=== PATIENT | female | born 1940 | race Caucasian/White ===

== ENCOUNTER 2016-07-25 22:51 | Inpatient (IN) | payer MEDICARE, MEDICAID ==
[~2016-07-25] VITALS: Ht 160 cm; Wt 119.2 kg
[~2016-07-25 22:51] MED LIST: ALBU8.5H2 IH; AMIO200T PO; AMLO5TAB2 PO; ASPI-628 PO; ATOR40TA69 PO; CALC-766 PO; FERR-83 PO; FLUT12AE8 IH; FURO40TA4 PO; HYDR-4003 PO; INSU100I SQ; INSU100I13 SUBQ; ISOS120T6 PO; LEVO88TA4 PO; LOSA50TA37 PO; MAGN250T37 PO; METO-272 PO; NITR0.4T SL; OMEP-113 PO; WARF5TAB7 PO
[2016-07-25 22:57] VITALS: BP 126/51; PULSE 63; RESP 20; O2SAT 94
[2016-07-25] MEDS ORDERED: Albuterol 2.5 mg/3 mL Inhalation Solution NEB ONE ×2 (23:42→23:50)
[2016-07-25] MEDS ORDERED: Albuterol-Ipratropium 3 mL Inhalation Solution ONE (23:50)
--- NOTE | 2016-07-25 23:52 | ED.REPORT ---
HPI-General Illness Date of Service Jul 25, 2016 ED Provider: Pascual Edwards MD 75 year old female with a history of asthma, atrial fibrillation, CAD, and HTN presents to the ER complaining of a week of shortness of breath, worsening tonight. Associated symptom of productive cough with yellow sputum, with an episode of blood streaked phlegm. Patient denies chest pain, fever, chills, and any bowel or urinary symptoms. Similar symptoms in the past. Nursing Notes Stated Complaint: DIFFICULTY BREATHING Chief Complaint: Respiratory Complaints Nursing Notes Reviewed: Yes Allergies: Coded Allergies: codeine (Verified Allergy, Unknown, 07/25/16) ibuprofen (Verified Allergy, Unknown, 07/25/16) Scheduled Amiodarone (Amiodarone) 200 Mg Tablet 100 MG PO AM Amlodipine (Amlodipine) 5 Mg Tablet 10 MG PO DAILY Aspirin Chew (Aspirin Chew) 81 Mg Chew 81 MG PO DAILY Atorvastatin Calcium (Atorvastatin Calcium) 40 Mg Tablet 80 MG PO DAILY Beclomethasone Dipropionate (Qvar) 8.7 Gm Aer.w.adap 2 PUFF INHALATION BID Calcium Carbonate (Tums) 500 Mg Tab.chew 1,000 MG PO DAILY Ferrous Sulfate (Ferrous Sulfate) 325 Mg Tablet 325 MG PO DAILY Fluticasone Propionate (Flovent HFA 110 mcg) 12 Gm Aer.w.adap 1 PUFF IH BID Furosemide (Furosemide) 40 Mg Tablet 80 MG PO DAILY Insulin Aspart (NovoLOG U-100 Pen) 100 Unit/Ml Insuln.pen 16 SQ AC Insulin Glargine (Lantus U100 Solostar Insulin Pen) 100 Unit/1 Ml Insuln.pen 25 UNIT SUBQ MORNING Insulin Glargine (Lantus U100 Insulin Vial) 100 Unit/Ml Vial 35 UNIT SUBQ HS Isosorbide MN ER (Isosorbide MN ER) 120 Mg Tab.er.24h 120 MG PO AM Levothyroxine (Levothyroxine) 88 Mcg Tablet 75 MCG PO DAILY Losartan Potassium (Losartan Potassium) 50 Mg Tablet 50 MG PO DAILY Magnesium Oxide (Magnesium Oxide) 250 Mg Tablet 250 MG PO DAILY Metoprolol Succinate ER (Metoprolol Succinate ER) 50 Mg Tab.er.24h 200 MG PO DAILY Multivitamin (Once Daily) 1 Each Tablet 1 EACH PO DAILY [place]-3 Fatty Acids/Fish Oil ([place] 3 1,000 mg Softgel) 1 Each Capsule 1 EACH PO DAILY Omeprazole (Omeprazole) 20 Mg Capsule.dr 20 MG PO DAILY Prednisone (PredniSONE) 20 Mg Tablet 20 MG PO DAILY take 2 by mouth daily Triamcinolone Acet (Triamcinolone Acetonide Cream) 1 Applic/0.25 Gm Cr 1 APPLIC EXT BID apply to rash on hands, arms and legs twice a day as needed Warfarin Sodium (Warfarin Sodium) 5 Mg Tablet 2.5 MG PO DIRECTED Mon, Wed, Thu Warfarin Sodium (Coumadin) 5 Mg Tablet 5 MG PO DAILY Take sun, e, , thu Scheduled PRN Albuterol HFA (Proair HFA) 8.5 Gm Hfa.aer.ad 2 PUFFS IH Q4 PRN PRN For Shortness of Breath Hydrocodone-Acetaminophen 5-325 mg (Hydrocodone-Acetaminophen 5-325 mg) 1 Each Tablet 1 EACH PO TID PRN PRN For Pain Nitroglycerin SL (Nitrostat) 0.4 Mg Tab.subl 0.4 MG SL Q5MIN PRN PRN For Chest Pain General Time Seen by MD: 23:52 Chief Complaint Other (Shortness of Breath) Hx Obtained From: Patient Arrived By: Walk-in Sudden in Onset?: No Onset Occurred: 1 week ago Symptom Duration: Since onset Associated with: Reports: Cough, Denies: Abdominal pain, Chest pain, Fever, Nausea, Vomiting Pertinent Negative: Pt denies other symptoms Context Related History: Reports Asthma, Reports Coronary artery disease, Reports Diabetes mellitus Similar Sx Previous: Yes Past Medical History Past Medical History Notes: Echocardiogram January 2015 with normal left ventricular size, increased left ventricular wall thickness, EF 70-75% with a hyperdynamic left ventricle, moderate mitral stenosis Past Medical History Sleep apnea hypertension thyroid issues atrial fibrillation Diabetes, type II Hyperlipidemia Asthma Obstructive sleep apnea Reports: Coronary artery disease Past Surgical History eye surgery Cardiac Cath 07/2010 - LAD free of critical disease, but diagonal branches about 95% ostial disease, circumflex artery had about a 50-60% ostial and proximal disease, and inferior branch of obtuse marginal had about 70-80% proximal disease, and the right coronary about 40-50% mid disease, attempted that time by Dr. Hagan on percutaneous intervention on the high diagonal in the inferior branch of obtuse marginal, but was technically difficult PCI itself was unsuccessful-since that time the patient's been managed medically Reports: , Hysterectomy, Tonsillectomy Smoking History Never Smoker Social History Alcohol Use: Denies alcohol use Other Social History: Ambulatory Status Independent Review of Systems Full Review of Systems Constitutional: Denies: Chills, Fever Respiratory: Reports: Prod cough, bloody, Prod cough, yellow, Shortness of breath Cardiovascular: Denies: Chest pain GI: Denies: Abdominal pain, Diarrhea, Nausea, Vomiting Female: Denies: Dysuria, Incontinence, Urinary frequency, Urinary urgency Skin: Denies Diaphoresis Complete sys rev & neg: except as marked. Physical Exam Vital Signs Vital Signs Date Time Temp Pulse Resp B/P Pulse Ox O2 Delivery O2 Flow Rate FiO2 07/26/16 00:09 63 18 98 Room Air 07/26/16 00:00 62 22 140/58 95 Room Air 07/25/16 22:57 36.4 63 20 126/51 94 Room Air Initial VS: Reviewed Head / Eyes: Atraumatic, Normocephalic, PERRL Neck: Supple, Non-tender, Full range of motion Abdomen / GI: Soft, Non-tender, No guarding, No rebound, No distention Extremities: Vascular intact, Neuro intact, No swelling, No tenderness Skin: Warm, Dry, No cyanosis Neurologic: Alert, Oriented, Nonfocal Psychiatric: Mood/affect normal, Behavior normal, Normal thought content General/Constitutional: Awake, Alert, Well developed, Well nourished Respiratory / Chest: Breath sounds NL, No respiratory distress, No rales, No rhonchi Wheezing / Retractions: Positive: Wheeze insp/exp diffuse Prolonged expiratory phase. Breathing through nebulizer. Cardiovascular: Heart rate NL, Regular rhythm, Heart sounds NL, Cap refill not delayed, Peripheral circulation NL Heart sounds barely audible. Interpretation & Diagnostics Lab Results Interpretation Result Diagram: 07/26/16 0552 07/26/16 0552 Test 07/26/16 00:43 07/26/16 01:00 Hold Liz Top Tube Received (Received) Hold Purple Top Tube Received (Received) Prothrombin Time 27.5sec (8.1-12.5) Prothromb Time International Ratio 2.52ratio Activated Partial Thromboplast Time 33.7sec (22.8-33.0) Hold Blue Top Tube Received (Received) Magnesium Level 1.9mg/dL (1.6-2.6) Pro-B-Type Natriuretic Peptide 841.7pg/mL (0-738) Procalcitonin 0.06ng/mL (0.00-0.08) Hold Red Top Tube Received (Received) Hold [place] Top Tube Received (Received) ECG Interpretation ECG Interpretation: Sinus rhythm, rate 61 Probable left atrial enlargement Borderline ST elevation, anterior leads Time: 23:48 Interpreted by: ED physician X-Ray Chest Interpretation Chest Xray Interpretation: No cardiomegaly, no CHF. View: AP & lat Interpretation / Wet Read by: Wet read ED physician Re-Eval/Medical Decision Med Decision/Clinical Course 75-year-old chronic A. fib COPD presents with several days of worsening cough and wheeze. She is grossly wheezy and in moderate respiratory distress initially. She has responded grudgingly took nebs here. X-ray does not disclose CHF. She has received steroids, multiple rounds of nebulizers, and is admitted now in improved condition to the medicine service. Problems #1 exacerbation COPD #2 CHF by history #3 chronic A. fib on Coumadin #4 diabetes, type II on insulin #5 hyperlipidemia #6 history of hypertension #7 obstructive sleep apnea Source of Hx: Old records Time of Eval: 01:49 Re-Evaluation/Progress Note: Discussed lab and imaging results and need for admission. Patient is amenable to the plan. Consultation : Referral / Consult Name: Gaby Benavidez DO Consulted With: Hospitalist Call Returned at: 02:35 Nnps: Agrees with eval, Agrees with plan, Accepts admit Counseled Regarding: Diagnosis, Lab results, Need for admission Discharge & Departure Primary Impression: COPD (chronic obstructive pulmonary disease) Additional Impressions: Diabetes Chronic atrial fibrillation Disposition: ADMITTED TO HOSPITAL Discharge Condition All VS Reviewed: Yes Condition: Stable Referrals: Elena Jewell MD (PCP) Scribe Attestation Portions of this note were transcribed by Oz Burt. I, Dr. Edwards, personally performed the history, physical exam and medical decision-making; I reviewed and confirmed the accuracy of the information in the transcribed note. Signed by: Pedro John. 07/26/2016 - 02:36 copies to: Elena Jewell MD, Christopher W MD Jul 25, 2016 23:52 OZ BURT Jul 25, 2016 23:58 Total Protein 7.4g/dL (6.4-8.4) Albumin 3.6g/dL (3.4-5.0) Hold Liz Top Tube Received (Received) Hold Purple Top Tube Received (Received) Hold Blue Top Tube Received (Received) Hold Red Top Tube Received (Received) Hold [place] Top Tube Received (Received) ECG Interpretation ECG Interpretation: Sinus rhythm, rate 61 Probable left atrial enlargement Borderline ST elevation, anterior leads Time: 23:48 Interpreted by: ED physician X-Ray Chest Interpretation Chest Xray Interpretation: No cardiomegaly, no CHF. View: AP & lat Interpretation / Wet Read by: Wet read ED physician Re-Eval/Medical Decision Source of Hx: Old records Time of Eval: 01:49 Re-Evaluation/Progress Note: Discussed lab and imaging results and need for admission. Patient is amenable to the plan. Consultation : Referral / Consult Name: Gaby Benavidez Consulted With: Hospitalist Call Returned at: 02:35 Nnps: Agrees with eval, Agrees with plan, Accepts admit Counseled Regarding: Diagnosis, Lab results, Need for admission Discharge & Departure Primary Impression: COPD (chronic obstructive pulmonary disease) Disposition: ADMITTED TO HOSPITAL Discharge Condition All VS Reviewed: Yes Condition: Stable Referrals: Elena Jewell MD (PCP) Scribe Attestation Portions of this note were transcribed by Oz Burt. I, Dr. Edwards, personally performed the history, physical exam and medical decision-making; I reviewed and confirmed the accuracy of the information in the transcribed note. Signed by: Pedro John. 07/26/2016 - 02:36 copies to: Elena Jewell MD, Christopher W MD Jul 25, 2016 23:52 OZ BURT Jul 25, 2016 23:58
[2016-07-26] VITALS (18 sets, daily range): BP systolic 139–171; BP diastolic 46–76; PULSE 62–85; RESP 18–24; O2SAT 94–98
[2016-07-26] MEDS ORDERED: Dexamethasone 10 mg/mL Inj IVPUSH ONE (00:40)
[2016-07-26 00:57] LABS: BASOPHILS % (AUTO) 0.2 % (0-3); EOSINOPHILS % (AUTO) 0.4 % (0-5); MONOCYTES % (AUTO) 3.3 % (4-12); Mean Corpuscular Hemoglobin 27.1 pg (27.0-35.0); Mean Corpuscular Volume 86.7 fL (81-100); NEUTROPHILS % (AUTO) 88.6 % (40-74); Platelet Count 235 bil/L (150-400)
[2016-07-26 01:47] LABS: TROPONIN T 0.01 ug/L (0.0-0.011)
[2016-07-26] MEDS ORDERED: Albuterol 2.5 mg/3 mL Inhalation Solution NEB ONE ×2 (01:50)
[2016-07-26 02:58] LABS: TROPONIN T 0.01 ug/L (0.0-0.011)
[2016-07-26] MEDS ORDERED: Ondansetron 2 mg/mL 2 mL Inj IVPUSH PRN (03:00)
[2016-07-26] MEDS ORDERED: Alum-Mag Hydrox-Simeth 30 mL Suspension PO PRN (03:00)
[2016-07-26] MEDS ORDERED: Polyethylene Glycol (PEG) 17 Gm Powder PO PRN (03:00)
[2016-07-26] MEDS: 0.9% Sodium Chloride 1,000 ML IV SCH ×2 (03:30→11:48)
[2016-07-26] MEDS ORDERED: Albuterol-Ipratropium 3 mL Inhalation Solution ONE (03:40)
[2016-07-26] MEDS ORDERED: BUDESONIDE 0.25 MG/2 ML ONE (03:40)
--- NOTE | 2016-07-26 03:44 | PCM.HPMED ---
Subjective Date of Service Jul 26, 2016 Primary Provider: Admitting Physician: Gaby Benavidez DO Primary Care Physician: Elena Jewell MD Attending Physician: Gaby Benavidez DO Admit Status: From the Emergency Department Chief Complaint: Shortness of breath History of Present Illness: Patient is a 75 y.o. 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 She presented to ED with two week history of shortness of breath with productive cough, sputum started as green-brown color now white, one episode of blood streaked sputum but no episode since, increasing use of albuterol inhaler up to 5 times per day. She noted that her symptoms acutely worsened a few hours prior to admission. Patient stated she was sitting down washing dishes and bending over when she became so short of breath she was unable to catch her breath. Patient noted that she felt very dizzy but did not pass out, she told her to help her out to the care and go to the Emergency department. Patient did not notice any change in symptoms during time of day, stating that symptoms are constant and worsening. She noted associated symptoms of orthopnea, PND, exertional dyspnea, chills, night sweats x1, increased swelling in her legs ( patient noted she has chronic LLE edema and this is one of "her bad days"), decreased appetite. Patient denies syncope, weight loss, fever, change in vision , dysuria, constipation, diarrhea. Patient has ever been hospitalized for respiratory issues in the past. In the ED patient was given 5 treatment of duo neb, 10 mg IV Dexamethasone, patient reported temporary relief, but eventual return of symptoms. Per out patient record patient seen by PCP 07/21/16 for breathing difficulty, report indicated that her was recently diagnosed with pneumonia, patient treated for asthma exacerbation 50 mg Prednisone for 5 days with CXR ordered and showed bilateral opacities in upper lobes of lungs, PCP called in script for Doxycycline 100 mg BID 07/23/16. Review of Systems: A comprehensive review of systems was conducted with the patient and found to be negative except as above in the History of Present Illness. Allergies Coded Allergies: codeine (Verified Allergy, Unknown, 07/25/16) ibuprofen (Verified Allergy, Unknown, 3/31/17) Home Medications Amiodarone (Amiodarone) 200 Mg Tablet 200 MG PO AM Amlodipine (Amlodipine) 5 Mg Tablet 5 MG PO DAILY Aspirin (Aspir 81) 81 Mg Tablet.dr 81 MG PO DAILY Atorvastatin Calcium (Atorvastatin Calcium) 40 Mg Tablet 80 MG PO DAILY Calcium Carbonate (Calcium) 500 Mg Tab.chew 1,000 MG PO DAILY Ferrous Sulfate (Ferrous Sulfate) 325 Mg Tablet 325 MG PO DAILY Fluticasone Propionate (Flovent HFA 110 mcg) 12 Gm Aer.w.adap 1 PUFF IH BID Furosemide (Furosemide) 40 Mg Tablet 40 MG PO DAILY Insulin Aspart (NovoLOG U-100 Pen) 100 Unit/Ml Insuln.pen 10 SQ AC Insulin Glargine (Lantus U100 Solostar Insulin Pen) 100 Unit/1 Ml Insuln.pen 20- 25 UNIT SUBQ BID Isosorbide MN ER (Isosorbide MN ER) 120 Mg Tab.er.24h 120 MG PO AM Levothyroxine (Levothyroxine) 88 Mcg Tablet 88 MCG PO DAILY Losartan Potassium (Losartan Potassium) 50 Mg Tablet 50 MG PO DAILY Magnesium Oxide (Magnesium Oxide) 250 Mg Tablet 250 MG PO DAILY Metoprolol Succinate ER (Metoprolol Succinate ER) 50 Mg Tab.er.24h 200 MG PO DAILY Omeprazole Magnesium (Omeprazole) 20 Mg Capsule.dr 20 MG PO DAILY Warfarin Sodium (Warfarin Sodium) 5 Mg Tablet 3 MG PO Mo Thu Sat Sun Albuterol HFA (Proair HFA) 8.5 Gm Hfa.aer.ad 2 PUFFS IH Q4 PRN PRN For Shortness of Breath Hydrocodone-Acetaminophen 5-325 mg (Hydrocodone-Acetaminophen 5-325 mg) 1 Each Tablet 1 EACH PO Q4 PRN PRN For Pain Nitroglycerin SL (Nitrostat) 0.4 Mg Tab.subl 0.4 MG SL Q5MIN PRN PRN For Chest Pain PMH Sleep apnea hypertension thyroid issues atrial fibrillation Diabetes, type II Hyperlipidemia Asthma Obstructive sleep apnea Coronary artery disease Uterine fibroids- Patient reports they were pre-malignant Surgical History eye surgery Cardiac Cath 07/2010 - LAD free of critical disease, but diagonal branches about 95% ostial disease, circumflex artery had about a 50-60% ostial and proximal disease, and inferior branch of obtuse marginal had about 70-80% proximal disease, and the right coronary about 40-50% mid disease, attempted that time by Dr. Hagan on percutaneous intervention on the high diagonal in the inferior branch of obtuse marginal, but was technically difficult PCI itself was unsuccessful-since that time the patient's been managed medically Hysterectomy Tonsillectomy Family History Father: [place], [place], prostate cancer Mother: [place], DM Sister: Uterine cancer Social History Hx Alcohol Use: No Hx Substance Use: No Hx Tobacco Use: No Smoking Status: Never Smoker Exam Vital Signs Vital Sign - Last Date Time Temp Pulse Resp B/P Pulse Ox O2 Delivery O2 Flow Rate FiO2 07/26/16 03:04 36.4 68 22 141/48 Room Air 07/26/16 00:09 98 Intake and Output 07/25/16 07/25/16 07/26/16 Cumulative From/Thru 15:00 23:00 07:00 07/25/16 22:57 - 07/26/16 03:02 Output Total 400 ml 400 ml Balance -400 ml -400 ml Output Urine Total 400 ml 400 ml Exam General: Moderate respiratory distress, conversationally dyspneic, well- developed, well-nourished, appropriately interactive, morbidly obese HEENT: Normocephalic, atraumatic. External ears without defect. Pupils equal, round, and reactive to light and accommodation. Anicteric sclerae, moist conjunctivae, and no lid lag. Oropharynx free of erythema and cobble stoning with moist mucosa. Neck: Supple with full range of motion. No jugular venous distension. No bruits. No lymphadenopathy or thyromegaly. Cardiovascular: Regular rate and rhythm, Heart sounds difficult to appreciate over wheezing Pulmonary: Wide A-P diameter, Prolonged expiratory phase, Diffuse inspiratory and expiratory wheezing audible without stethoscope, course breath sound bilaterally, nasal fairing present, use of accessory muscles difficult to appreciate, no crackles heard at bases, no chest wall tenderness, productive cough present, white sputum. Abdomen: Bowel tones present. Soft, nontender, nondistended. No hepatosplenomegaly or masses appreciated. Extremities: Pitting edema to knee noted bilaterally on exam. No clubbing, cyanosis,or lymphadenopathy appreciated. Skin: Chronic venous status changes noted bilaterally, Normal temperature, poor turgor, and texture;, ulcers, or subcutaneous nodules appreciated. Neurological: Cranial nerves grossly intact. Normal muscle strength, tone, and bulk. Reflexes, coordination, and sensory function within normal limits. No known gait impairment. Psychiatric: Normal mood and affect. Alert and oriented to person, place, and time. Lymphatic: no lymphadenopathy noted on exam Lab and Diagnostics Result Diagram: 07/25/16 0043 07/25/16 0043 X-Rays, CTs and MRIs X-Ray Chest Xray Interpretation: No cardiomegaly, no CHF. View: AP & lat Interpretation / Wet Read by: Wet read ED physician There are no acute signs of CHF, no cephalization of flow noted, no pleural effusions There does appear to be mild cardiomegaly Upper lobe opacities seen on imaging 07/21/30 seem to be resolving, however this can not be excluded until a formal read is done CXR 07/21/16 IMPRESSION: Upper lobe airspace opacities likely related to aspiration versus pneumonia. Continued radiographic surveillance to resolution is recommended. Dictated by: Maxx Contreras RRA Interpreted: Katie Ambriz MD on 07/21/2016 at 16:29 Transcribed by: RENETTA on 07/21/2016 at 16:30 Approved by: Katie Ambriz M.D. on 07/22/2016 at 10:45 12-lead ECG ECG ECG Interpretation: Sinus rhythm, rate 61 Probable left atrial enlargement Borderline ST elevation, anterior leads Time: 23:48 Interpreted by: ED physician Assessment & Plan Patient is a 75 y.o. 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 Admitted for treatment of COPD exacerbation. 1. COPD exacerbation, acute - Likely undiagnosed acute exacerbation of COPD vs CHF vs resolving pneumonia vs co-infection respiratory virus - Patient has history of asthma and GEORGE, never formally diagnoses with COPD CXR consistent with signs of COPD, - At time of admission patient is sating in 90's in RA, with conversational and exertional dyspnea, with prominent rhales and insp/exp wheezing, afebrile, moderate improvement with DUO neb, no elv WCT, no elv procal, troponin negative x 2, - Start Zosyn IV to cover for aspiration pneumonia and atypical microbes, close monitoring of INR needed as this can increase anticoagulation effect if warfarin , Last INR 2.0 07/23/16 - Continue Duoneb Q4 scheduled and Duoneb Q2 PRN - Start Budesonide neb BID - Start Solumedrol IV 125 mg Q6 for 3 doses, if improved condition consider taper to prednisone 40 mg PO QD for five days. - Guaifenesin PO BID - Sputum culture ordered, pending - Viral PCR ordered, pending - incentive spirometer ordered - Acapella ordered - ECHO and repeat trop ordered to assess heart function and ischemia - PT ordered to mobilize at patient tolerates to help mobilize secretions - Recommend PFT testing as outpatient 2. Aspiration pneumonia, failing outpatient treatment - Patient seen by PCP 07/21/16 started on prednisone 50 mg for 5 days, and CXR showed upper lobe opacities in lungs suspicious for aspiration pneumonia, patient started on doxycycline 100 mg PO BID 07/23/16, repeat CXR today shows improvement of opacities however clinically patient appears worse. - Start Zosyn IV to cover for aspiration pneumonia and atypical microbes, close monitoring of INR needed as this can increase anticoagulation effect if warfarin, Last INR 2.0 07/23/16 - Continue Doxycycline 100 mg IV - Repeat INR QD - Repeat CXR QD - Procalcitonin 0.06, WCT normal, LA negative, however these results are somewhat confounded being that patient has already been on antibiotic therapy. - Repeat CBC, BMP in AM - Keep Patient NPO until Swallow eval AM 3.LANIE - Baseline Cr. per outpatient records 1.2-1.4 last BMP on record 03/2016 1.4 - Patient has DMII, likley underlying cause of kidney disease however this will need to be confirmed with outpatient labs. - Continue conservative fluid hydration NS @ 80 mls/hr - Hold nephrotoxic medications - Continue to monitor I/O status - UA ordered, pending - Monitor BMP QD 3. Venous status, chronic - Patient noted her left are chronically swollen and wax/walter in swelling, there is some erythema surrounding legs with dry flaking skin, at this time I do not suspect an acute cellulitis - Continue home lasix at home dose - Monitor I/O - Start Nystatin cream BID PRN - Continue home lasix, consider additional IV lasix if swelling does not improve once renal function normalizes Chronic conditions Obstructive sleep apnea -continue BIPAP at night hypertension - Continue home medicaiton - Repeat BMP in AM Hypothyroidism -Continue home levothyroxine atrial fibrillation - Continue home medications - Continue anticoagulation Diabetes, type II - Home Lantus: 30 units AM, 25 units PM - Hold diet until swallow eval completed Diet: diabetic diet constant carb 45 g carb, low potassium - Start Lantus Am 25 units and PM 20 units - Start medium correctional scale - Last A1C 8.1 04/2016 Hyperlipidemia - Continue Statin Asthma - Manage as above #1 Coronary artery disease - Continue home medications -Cardiac Cath 07/2010 - LAD free of critical disease, but diagonal branches about 95% ostial disease, circumflex artery had about a 50-60% ostial and proximal disease, and inferior branch of obtuse marginal had about 70-80% proximal disease, and the right coronary about 40-50% mid disease, difficult PCI itself was unsuccessful-since that time the patient's been managed medically - If troponin trend up consider cardiology consult Chronic back pain - Continue hydrocodone home dose 5-325 mg PO PRN Q6 CODE STATUS FULL CODE GI prophylaxis: Famotidine DVT: Warfarin Patient is admitted under inpatient status with expected length of stay greater than 2 midnights due to severity of presenting symptoms, risk of adverse event, and complexity of treatment plan. Pain Evaluation: Adequate Pain Control GI Prophylaxis: H2 chanel VTE Prophylaxis: Theraputic Anticoag with Warfarin Resuscitation Status: CPR: Attempt Resuscitation Attending Statement The patient was seen and examined together with house staff on 07/26/2016 and I agree with the history, exam and plan as outlined in the note above. JUAN MULLER DO Jul 26, 2016 03:43 Gaby Benavidez DO Jul 29, 2016 06:46
[2016-07-26] MEDS ORDERED: Glucose 40% Oral Gel 15 Gm Tube PO PRN (04:10)
[2016-07-26] MEDS ORDERED: Piperacillin-Tazo 3.375 Gm Inj 3.375 GM in Dextrose 5% Minibag Plus 50 ML IV ONE (05:00)
[2016-07-26 05:09] LABS: INR 2.52 ratio
--- NOTE | 2016-07-26 05:33 | NUR ---
Admit Admitted to 3025 from ED via wheel chair. Able to ambulate short distance on arrival. RA with significant wheezing throughout. Reports VARGAS but states breathing has improved since arrival to hospital. Productive cough reported but no significant sputum production noted on admit. Tele SR w/o c/o CP or discomfort. Denies issues with PO intake including n/v. Reports occasional incontinence of bowels and urinary dribbling with last BM on 07/24. Baseline generalized weakness with use of walker at home for ambulation. Yeast in abdominal folds and venous ulcers to BLE with clear drainage. BLE edema R>L which patient states is at baseline. Personal belongings at bedside per patient request. Oriented to call light use with return demonstration.
[2016-07-26 06:06] LABS: BASOPHILS % (AUTO) 0.2 % (0-3); EOSINOPHILS % (AUTO) 0 % (0-5); MONOCYTES % (AUTO) 1.1 % (4-12); Mean Corpuscular Hemoglobin 27.2 pg (27.0-35.0); Mean Corpuscular Volume 86.7 fL (81-100); NEUTROPHILS % (AUTO) 94.2 % (40-74); Platelet Count 225 bil/L (150-400)
[2016-07-26] MEDS ORDERED: Albuterol-Ipratropium 3 mL Inhalation Solution NEB PRN (06:15)
[2016-07-26] MEDS ORDERED: MethylprednisoLONE Sodium Succinate 62.5 mg/mL 2 mL Inj IVPUSH SCH ×2 (06:20→15:00)
--- NOTE | 2016-07-26 06:30 | DRSVH ---
PROCEDURE: X-RAY CHEST, TWO VIEWS ([id number]) INDICATIONS: 75-year-old female with shortness of breath., 2-3 weeks of cough. TECHNIQUE: 2 views of the chest were acquired. COMPARISON: [facility], CR, XR CHEST 2VW, 07/21/2016, 16:06. [facility], CR , XR CHEST 1VW (PORTABLE), 12/01/2015, 10:47. [facility], CR, XR CHEST 1VW (PORTABLE), , 11:29. FINDINGS: Surgical changes and devices: None. Lungs and pleura: No pleural effusions or pneumothorax. Lungs are clear. Mediastinum: Mediastinal contours are normal. Heart size is normal. There is aortic atherosclerosi s. Bones and chest wall: No suspicious bony abnormalities. Soft tissues appear unremarkable. IMPRESSION: No acute cardiopulmonary disease. Dictated by: Venkatesh Wallace M.D. on 07/26/2016 at 6:28 Approved by: Venkatesh Wallace M.D. on 07/26/2016 at 6:29
[2016-07-26] MEDS ORDERED: CALC500T9 PO (06:37)
[2016-07-26] MEDS ORDERED: OMEP20CA11 PO (06:37)
[2016-07-26] MEDS ORDERED: ASPI81TA3 PO (06:37)
[2016-07-26 06:43] LABS: TROPONIN T 0.01 ug/L (0.0-0.011)
[2016-07-26] MEDS ORDERED: OMEG1CAP56 PO (07:11)
[2016-07-26] MEDS ORDERED: INSU100V7 SUBQ (07:11)
[2016-07-26] MEDS ORDERED: PRE20 PO (07:11)
[2016-07-26] MEDS ORDERED: BECL8.7A6 INHALATION (07:11)
[2016-07-26] MEDS ORDERED: WARF5TAB PO (07:11)
[2016-07-26] MEDS ORDERED: MULT-666 PO (07:11)
[2016-07-26] MEDS ORDERED: KEN25CR EXT (07:11)
[2016-07-26] MEDS: Insulin LISPRO 300 Unit/3 mL Inj SUBQ SCH ×4 (08:00→22:00)
[2016-07-26] MEDS: Albuterol 2.5 mg/3 mL Inhalation Solution NEB PRN ×3 (08:15→16:29)
[2016-07-26] MEDS ORDERED: predniSONE 20 mg Tablet PO SCH (08:30)
[2016-07-26] MEDS: Budesonide 0.5 mg/2 mL Inhalation Solution NEB SCH ×2 (08:30→19:30)
[2016-07-26] MEDS: Albuterol-Ipratropium 3 mL Inhalation Solution NEB SCH ×3 (08:30→19:30)
[2016-07-26] MEDS ORDERED: Albuterol-Ipratropium 3 mL Inhalation Solution NEB SCH ×2 (08:30)
[2016-07-26] MEDS ORDERED: Heparin 5,000 Unit/mL Inj SUBQ SCH (08:30)
[2016-07-26] MEDS: Famotidine Inj 20 MG in IV Premix 1 EACH IV SCH (09:02)
[2016-07-26] MEDS: guaiFENesin 600 mg ER12 Tablet PO SCH ×2 (09:02→21:38)
[2016-07-26] MEDS: Calcium Carbonate (Oyster Shell) 500 mg Tablet PO SCH (09:04)
[2016-07-26] MEDS: Insulin GLARgine 100 Unit/mL Syringe SUBQ SCH ×2 (09:05→22:03)
[2016-07-26 09:10] LABS: APPEARANCE,URINE CLEAR (CLEAR,HAZY); COLOR,URINE STRAW (YELLOW); OCCULT BLOOD,URINE NEGATIVE (NEGATIVE); PH,URINE 5.5 (5.0-8.0); UROBILINOGEN,URINE NORMAL (NORMAL)
[2016-07-26] MEDS ORDERED: INSU100I13 SUBQ ×2 (09:49→09:50)
[2016-07-26] MEDS ORDERED: qvar (10:12)
--- NOTE | 2016-07-26 10:36 | PCM.PHAPRO ---
Progress Warfarin Management by Pharmacy: -Indication: afib -Home Dose: warfarin 2.5mg on MoWeFr and 5mg all other days -Inr Goal: 2-3 -Coag Trends: inr on admit overnight is 2.52 -H/H= 11.2/35.7 Plt: 225 -Plan: will order warfarin 4mg this evening and monitor. serial inr's have been ordered Shruthi Okeefe [facility] Jul 26, 2016 10:35
--- NOTE | 2016-07-26 10:49 | NUR ---
Evaluation completed. Please go to "Notes" then click on "Assessments and Notes" (bottom left corner of screen). Then select appropriate discipline tab on top of screen.
[2016-07-26] MEDS ORDERED: HYDROcodone-APAP 5-325 mg Tablet PO PRN (11:15)
[2016-07-26] MEDS: Isosorbide Mononitrate 60 mg ER24 Tablet PO SCH (11:21)
[2016-07-26] MEDS: MeTOProlol XL 50 mg ER24 Tablet PO SCH (11:22)
[2016-07-26] MEDS: Doxycycline Inj 100 MG in Dextrose 5% Minibag Plus 100 ML IV SCH (11:46)
--- NOTE | 2016-07-26 12:30 | NUR ---
Evaluation completed. Please go to "Notes" then click on "Assessments and Notes" (bottom left corner of screen). Then select appropriate discipline tab on top of screen.
--- NOTE | 2016-07-26 14:39 | NUR ---
Social Work: Initial Assessment Data: Pt is a 75 y/o female admitted for COPD exacerbation. Pt's PCP is Dr Jewell, pt's insurance is Medicare with [facility] supp. EMR reviewed. Readmit score not listed. MANAGER SIMULATION met with pt at bedside, role explained. Pt sates she lives in [place] with her in a single story home where she uses a walker. Pt states she drives, has hx with [facility], has hx at [facility], has no LTC or VA benefits, and is not a caregiver. Pt states she has and AD/DPOA, MANAGER SIMULATION requested a copy for hospital. MANAGER SIMULATION will continue to follow for possible d/c planning needs. F2F in MANAGER SIMULATION folder for possible HH need. MANAGER SIMULATION contact info and plan written on board in room. MANAGER SIMULATION will continue to follow. Assessment: Pt who is independent at baseline. Plan: Pt will d/c home via POV with spouse when medically stable, MANAGER SIMULATION to R/O possible HH need. MANAGER SIMULATION will continue to follow. ROULA Mcdonald Addendum: 07/26/16 at 1442 by JORJE MTZ Amended: Links added.
[2016-07-26] MEDS: MethylprednisoLONE Sodium Succinate 40 mg/mL Inj IVPUSH SCH ×2 (16:22→21:38)
[2016-07-26] MEDS ORDERED: Insulin LISPRO 300 Unit/3 mL Inj SUBQ ONE (18:00)
[2016-07-26] MEDS ORDERED: Furosemide 10 mg/mL 2 mL Inj IVPUSH ONE (18:05)
[2016-07-26] MEDS: Piper-Tazo 3.375 Gm/50 mL D5W Minibag Plus - Q8H over 4 hrs IV SCH ×2 (18:26)
--- NOTE | 2016-07-26 19:17 | NUR ---
Respiratory/Hyperglycemia Pt wheezy this morning on auscultation throughout all lung mcleod. Alert and oriented. Cont. pulse oximeter applied. brought her personal CPAP. Scheduled nebs have improved pt wheezing and breathing. Slight VARGAS with activity. She is able to walk to bathroom with FWW with min. VARGAS. Pt BG this afternoon elevated to upwards of 600. Lab called to report the critical value. Berto made aware. AC BG scale changed to high dose algorithm. Admin 12 units Lispro at about 1630. Re-checked BG at about 1800 and BG still elevated in the 500 range. Berto made aware and order for one time dose of 24 units Lispro. Will pass on to night clerk auditor to monitor BG levels this evening.
--- NOTE | 2016-07-26 19:23 | PCM.PNMED ---
Subjective Date of Service Jul 26, 2016 Subjective 75-year-old female with multiple comorbid conditions including asthma, and tested positive for human metapneumovirus. This is not a billable encounter, agree with Dr. Osiel Vogel's assessment and plan. Upon examination this morning patient stated that she feels better than she did. She is no longer gasping for air as like she was. She still had audible wheezes when in close proximity. Nebulizer treatment regimen was changed to DuoNeb every 6 hours and albuterol every 2 hours when necessary for shortness of breath. Her Solu-Medrol dose was decreased from 125 IV every 6 to 40 IV every 6 hours. Patient was having gentle fluid resuscitation while being nothing by mouth due to her respiratory status of about 80 mL per hour. The edema in her legs continued to worsen over the days of the fluids were stopped. Patient does not have diagnosed CHF. Echo was ordered however not completed today. I spoke with the who is concerned about leg swelling. Patient's creatinine stayed stable at 1.54, a dose of 20mg IV Lasix was given. Home dose of Lasix is 40 mg by mouth daily. Patient's blood sugar increase in the afternoon into the 600s presumably due to steroid use. Additional short acting insulin was added. Patient normally takes 25 units of Lantus at night. Due to her increased blood sugar and treatment with steroids her evening dose was increased to 30 units. I have not yet made adjustments to her morning dose as her sugars overnight will dictate what may be helpful for her then. Patient's glucose status was discussed with night resident who is following. ] Exam Vital Signs Vital Sign - Last Date Time Temp Pulse Resp B/P Pulse Ox O2 Delivery O2 Flow Rate FiO2 07/26/16 18:25 36.3 81 22 139/63 96 Room Air Intake and Output 07/25/16 07/25/16 07/26/16 Cumulative From/Thru 15:00 23:00 07:00 07/25/16 22:57 - 07/26/16 05:45 Intake Total 0 ml 0 ml Output Total 400 ml 400 ml Balance -400 ml -400 ml Intake Oral 0 ml 0 ml Output Urine Total 400 ml 400 ml # Voids 0 0 # Bowel Movements 0 0 Lab and Diagnostics Result Diagram: 07/26/16 0552 07/26/16 1520 X-Rays, CTs and MRIs X-Ray Chest Xray Interpretation: No cardiomegaly, no CHF. View: AP & lat Interpretation / Wet Read by: Wet read ED physician There are no acute signs of CHF, no cephalization of flow noted, no pleural effusions There does appear to be mild cardiomegaly Upper lobe opacities seen on imaging 07/21/30 seem to be resolving, however this can not be excluded until a formal read is done CXR 07/21/16 IMPRESSION: Upper lobe airspace opacities likely related to aspiration versus pneumonia. Continued radiographic surveillance to resolution is recommended. Dictated by: Maxx Contreras RRA Interpreted: Katie Ambriz MD on 07/21/2016 at 16:29 Transcribed by: RENETTA on 07/21/2016 at 16:30 Approved by: Katie Ambriz M.D. on 07/22/2016 at 10:45 12-lead ECG ECG ECG Interpretation: Sinus rhythm, rate 61 Probable left atrial enlargement Borderline ST elevation, anterior leads Time: 23:48 Interpreted by: ED physician Assessment & Plan Patient is a 75 y.o. 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 Admitted for treatment of COPD exacerbation. 1. COPD and /or asthma exacerbation due to human metapneumovirus infection, acute - Likely undiagnosed acute exacerbation of COPD vs CHF vs resolving pneumonia vs co-infection respiratory virus - Patient has history of asthma and GEORGE, never formally diagnoses with COPD CXR consistent with signs of COPD, - At time of admission patient is sating in 90's in RA, with conversational and exertional dyspnea, with prominent rhales and insp/exp wheezing, afebrile, moderate improvement with DUO neb, no elv WCT, no elv procal, troponin negative x 2, - Start Zosyn IV to cover for aspiration pneumonia and atypical microbes, close monitoring of INR needed as this can increase anticoagulation effect if warfarin , Last INR 2.0 07/23/16 - Continue Duoneb Q4 scheduled and Duoneb Q2 PRN - Start Budesonide neb BID - Start Solumedrol IV 125 mg Q6 for 3 doses, lowered dose to 40 q6h.if improved condition consider taper to prednisone 40 mg PO QD for five days. - Guaifenesin PO BID - Sputum culture ordered, pending - Viral PCR ordered, pending - incentive spirometer ordered - Acapella ordered - ECHO and repeat trop ordered to assess heart function and ischemia - PT ordered to mobilize at patient tolerates to help mobilize secretions - Recommend PFT testing as outpatient 2. suspected Aspiration pneumonia, failing outpatient treatment - Patient seen by PCP 07/21/16 started on prednisone 50 mg for 5 days, and CXR showed upper lobe opacities in lungs suspicious for aspiration pneumonia, patient started on doxycycline 100 mg PO BID 07/23/16, repeat CXR today shows improvement of opacities however clinically patient appears worse. - Start Zosyn IV to cover for aspiration pneumonia and atypical microbes, close monitoring of INR needed as this can increase anticoagulation effect if warfarin, Last INR 2.0 07/23/16 - Continue Doxycycline 100 mg IV - Repeat INR QD - Repeat CXR QD - Procalcitonin 0.06, WCT normal, LA negative, however these results are somewhat confounded being that patient has already been on antibiotic therapy. 3.LANIE - Baseline Cr. per outpatient records 1.2-1.4 last BMP on record 03/2016 1.4 - Patient has DMII, likley underlying cause of kidney disease however this will need to be confirmed with outpatient labs. - Continue conservative fluid hydration NS @ 80 mls/hr - Hold nephrotoxic medications - Continue to monitor I/O status - UA ordered, pending 3. Venous status, chronic - Patient noted her left are chronically swollen and wax/walter in swelling, there is some erythema surrounding legs with dry flaking skin, at this time I do not suspect an acute cellulitis - Continue home lasix at home dose - Monitor I/O - Start Nystatin cream BID PRN - Continue home lasix, consider additional IV lasix if swelling does not improve once renal function normalizes Chronic conditions Obstructive sleep apnea -continue BIPAP at night hypertension - Continue home medicaiton - Repeat BMP in AM Hypothyroidism -Continue home levothyroxine atrial fibrillation - Continue home medications - Continue anticoagulation Diabetes, type II - Home Lantus: 30 units AM, 25 units PM - Hold diet until swallow eval completed Diet: diabetic diet constant carb 45 g carb, low potassium - Start Lantus Am 25 units and PM 20 units - Start medium correctional scale - Last A1C 8.1 04/2016 Hyperlipidemia - Continue Statin Asthma - Manage as above #1 Coronary artery disease - Continue home medications -Cardiac Cath 07/2010 - LAD free of critical disease, but diagonal branches about 95% ostial disease, circumflex artery had about a 50-60% ostial and proximal disease, and inferior branch of obtuse marginal had about 70-80% proximal disease, and the right coronary about 40-50% mid disease, difficult PCI itself was unsuccessful-since that time the patient's been managed medically - If troponin trend up consider cardiology consult Chronic back pain - Continue hydrocodone home dose 5-325 mg PO PRN Q6 CODE STATUS FULL CODE GI prophylaxis: Famotidine DVT: Warfarin Patient is admitted under inpatient status with expected length of stay greater than 2 midnights due to severity of presenting symptoms, risk of adverse event, and complexity of treatment plan. GI Prophylaxis: H2 chanel VTE Prophylaxis: Theraputic Anticoag with Warfarin Resuscitation Status: CPR: Attempt Resuscitation Attending Statement The patient was seen and examined independently on 07/26/2016 and case discussed with Dr. Aaron , I agree with the history, exam and plan as outlined in the note above. Yaquelin Aaron DO Jul 26, 2016 19:23 Jesus Gillespie MD Jul 26, 2016 21:13
[2016-07-26] MEDS ORDERED: Insulin GLARgine 100 Unit/mL Syringe SUBQ SCH (21:00)
[2016-07-26] MEDS: HYDROcodone-APAP 5-325 mg Tablet PO PRN (23:14)
[2016-07-27] VITALS (13 sets, daily range): BP systolic 126–155; BP diastolic 60–74; PULSE 61–90; RESP 16–22; O2SAT 94–99
[2016-07-27] MEDS ORDERED: Insulin LISPRO 300 Unit/3 mL Inj SUBQ ONE ×4 (00:15→15:55)
[2016-07-27] MEDS ORDERED: MethylprednisoLONE Sodium Succinate 62.5 mg/mL 2 mL Inj IVPUSH SCH (02:30)
[2016-07-27] MEDS: Albuterol-Ipratropium 3 mL Inhalation Solution NEB SCH ×4 (02:34→22:52)
[2016-07-27] MEDS: MethylprednisoLONE Sodium Succinate 40 mg/mL Inj IVPUSH SCH (03:21)
[2016-07-27] MEDS: Piper-Tazo 3.375 Gm/50 mL D5W Minibag Plus - Q8H over 4 hrs IV SCH ×2 (05:20)
[2016-07-27 06:26] LABS: BASOPHILS % (AUTO) 0 % (0-3); EOSINOPHILS % (AUTO) 0 % (0-5); MONOCYTES % (AUTO) 3.5 % (4-12); Mean Corpuscular Hemoglobin 27.2 pg (27.0-35.0); Mean Corpuscular Volume 84.6 fL (81-100); NEUTROPHILS % (AUTO) 94.4 % (40-74); Platelet Count 233 bil/L (150-400)
--- NOTE | 2016-07-27 06:38 | NUR ---
Hyperglycemia Blood glucose 506 /453 / 465 / 474 / 408 / 330 MD aware with new orders. Pt has had the total of 30 unit of Lispro and 30 units of Lantus. No s/sx of hyper/hypoglycemia noted at this time. Care ongoing.
[2016-07-27 06:45] LABS: INR 3.36 ratio
[2016-07-27] MEDS: Isosorbide Mononitrate 60 mg ER24 Tablet PO SCH (07:51)
[2016-07-27] MEDS: guaiFENesin 600 mg ER12 Tablet PO SCH ×2 (07:52→19:39)
[2016-07-27] MEDS: MeTOProlol XL 50 mg ER24 Tablet PO SCH (07:54)
[2016-07-27] MEDS: Calcium Carbonate (Oyster Shell) 500 mg Tablet PO SCH (07:56)
[2016-07-27] MEDS: Insulin GLARgine 100 Unit/mL Syringe SUBQ SCH ×2 (07:58→22:32)
[2016-07-27] MEDS: Doxycycline Inj 100 MG in Dextrose 5% Minibag Plus 100 ML IV SCH (08:00)
[2016-07-27] MEDS ORDERED: cefTRIAXone Inj 2,000 MG in Dextrose 5% Minibag Plus 50 ML IV SCH (08:00)
--- NOTE | 2016-07-27 08:09 | PCM.PHAPRO ---
Progress Warfarin Management by Pharmacy -Indication: afib -Home Dose: warfarin 2.5mg on MoWeFr and 5mg all other days -Inr Goal: 2-3 -Coag Trends: inr on admit, 07/26 2.52 warfarin 4mg, inr today is 3.36 -H/H 11.1/34.5 Plt 233 -Drug Interactions: amiodarone, ceftriaxone -Plan: inr is supratherapeutic on day 2 of warfarin. will hold dose this evening and monitor Shruthi Okeefe [facility] Jul 27, 2016 08:09
[2016-07-27] MEDS: Budesonide 0.5 mg/2 mL Inhalation Solution NEB SCH ×2 (08:23→20:30)
--- NOTE | 2016-07-27 08:37 | PCM.PHAPRO ---
Shruthi Okeefe [facility] Jul 27, 2016 08:37
[2016-07-27] MEDS: Insulin LISPRO 300 Unit/3 mL Inj SUBQ SCH ×4 (08:48→22:32)
[2016-07-27] MEDS: predniSONE 20 mg Tablet PO SCH (08:50)
[2016-07-27] MEDS: HYDROcodone-APAP 5-325 mg Tablet PO PRN ×2 (08:50→15:46)
--- NOTE | 2016-07-27 09:12 | PCM.PNMED ---
Subjective Date of Service Jul 27, 2016 Subjective Breathing continues to improve. Steroid tapered to prednisone 40 mg by mouth daily. Blood glucose uncontrolled overnight, glucose in 600s last night. Remains afebrile. Antibiotics discontinued. Some leukocytosis due to steroid. Slightly worsened LANIE Exam Vital Signs Vital Sign - Last Date Time Temp Pulse Resp B/P Pulse Ox O2 Delivery O2 Flow Rate FiO2 07/27/16 08:38 88 07/27/16 08:24 20 95 Room Air 07/27/16 05:54 36.3 148/72 07/27/16 02:34 21 Intake and Output 07/26/16 07/26/16 07/27/16 Cumulative From/Thru 15:00 23:00 07:00 07/25/16 22:57 - 07/27/16 06:45 Intake Total 914 ml 400 ml 1314 ml Output Total 200 ml 600 ml Balance 714 ml 400 ml 714 ml Intake Oral 914 ml 400 ml 1314 ml Output Urine Total 200 ml 600 ml # Voids 5 5 # Bowel Movements 0 0 Exam General: mild respiratory distress, well-developed, well-nourished, appropriately interactive, morbidly obese HEENT: Normocephalic, atraumatic. Neck: Supple with full range of motion. No jugular venous distension. No bruits. No lymphadenopathy or thyromegaly. Cardiovascular: Regular rate and rhythm, Pulmonary: Wide A-P diameter, Prolonged expiratory phase, scattered inspiratory and expiratory wheezing, no use of accessory muscles Abdomen: Bowel tones present. Soft, nontender, nondistended. No hepatosplenomegaly or masses appreciated. Extremities: Pitting edema to knee noted bilaterally on exam. No clubbing, cyanosis,or lymphadenopathy appreciated. Skin: Chronic venous status changes noted bilaterally, Normal temperature, poor turgor, and texture;, ulcers, or subcutaneous nodules appreciated. Neurological: Cranial nerves grossly intact. Normal muscle strength, tone, and bulk. Reflexes, coordination, and sensory function within normal limits. No known gait impairment. Psychiatric: Normal mood and affect. Alert and oriented to person, place, and time. Lymphatic: no lymphadenopathy noted on exam IVs and Medications Medications Reviewed: Medications were reviewed in detail Lab and Diagnostics Result Diagram: 07/27/16 0600 07/27/16 0600 X-Rays, CTs and MRIs X-Ray Chest Xray Interpretation: No cardiomegaly, no CHF. View: AP & lat Interpretation / Wet Read by: Wet read ED physician There are no acute signs of CHF, no cephalization of flow noted, no pleural effusions There does appear to be mild cardiomegaly Upper lobe opacities seen on imaging 07/21/30 seem to be resolving, however this can not be excluded until a formal read is done CXR 07/21/16 IMPRESSION: Upper lobe airspace opacities likely related to aspiration versus pneumonia. Continued radiographic surveillance to resolution is recommended. Dictated by: Maxx Contreras RRA Interpreted: Katie Ambriz MD on 07/21/2016 at 16:29 Transcribed by: RENETTA on 07/21/2016 at 16:30 Approved by: Katie Ambriz M.D. on 07/22/2016 at 10:45 12-lead ECG ECG ECG Interpretation: Sinus rhythm, rate 61 Probable left atrial enlargement Borderline ST elevation, anterior leads Time: 23:48 Interpreted by: ED physician Assessment & Plan Patient is a 75 y.o. 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 Admitted for treatment of COPD exacerbation. 1. COPD and /or asthma exacerbation due to human metapneumovirus infection, acute - Likely undiagnosed acute exacerbation of COPD - Patient has history of asthma and GEORGE, never formally diagnoses with COPD CXR consistent with signs of COPD, - At time of admission patient is sating in 90's in RA, with conversational and exertional dyspnea, with prominent rhales and insp/exp wheezing, afebrile, moderate improvement with DUO neb, no elv WCT, no elv procal, troponin negative x 2, - Initially Started Zosyn IV and doxycycline to cover for aspiration pneumonia and atypical microbes, she remains afebrile. Procalcitonin negative. Chest x- ray no infiltrates. viral PCR positive for hMPV. No evidence of infection so far. I will discontinue antibiotics and monitor off antibiotics. - Continue Duoneb Q4 scheduled and Duoneb Q2 PRN - Started Budesonide neb BID - Initially Started Solumedrol IV 125 mg Q6 for 3 doses, lowered dose to 40 q6h. with furthur taper to prednisone 40 mg PO QD for five days given uncontrolled glucose and breathing markedly improved. - Guaifenesin PO BID - Sputum culture ordered, pending - Viral PCR positive for human metapneumovirus - incentive spirometer - Acapella ordered - ECHO ordered to assess heart function - PT ordered to mobilize at patient tolerates to help mobilize secretions - Recommend PFT testing as outpatient 2. Initially suspected Aspiration pneumonia, failing outpatient treatment - Patient seen by PCP 07/21/16 started on prednisone 50 mg for 5 days, and CXR showed upper lobe opacities in lungs suspicious for aspiration pneumonia, patient started on doxycycline 100 mg PO BID 07/23/16, repeat CXR today shows improvement of opacities . Patient was started on Zosyn.she remains afebrile. Procalcitonin negative. Chest x-ray no infiltrates. viral PCR positive for hMPV. No evidence of infection so far. I will discontinue antibiotics and monitor off antibiotics. 3.LANIE - Baseline Cr. per outpatient records 1.2-1.4 last BMP on record 03/2016 1.4 - Patient has DMII, florley underlying cause of kidney disease however this will need to be confirmed with outpatient labs. - Continue conservative oral hydration. - Hold nephrotoxic medications. Antibiotics discontinued. - Continue to monitor I/O status 4. Venous status, chronic - Patient noted her left are chronically swollen and wax/walter in swelling, there is some erythema surrounding legs with dry flaking skin, at this time I do not suspect an acute cellulitis - Continue home lasix at home dose - Monitor I/O - Start Nystatin cream BID PRN - Continue home lasix, consider additional IV lasix if swelling does not improve once renal function normalizes 5. Diabetes, type II - Home Lantus: 30 units AM, 25 units PM -Glucose uncontrolled overnight, glucose in 600s. Due to steroids and She was initially started on lower dose of Lantus. Increased her Lantus dose to her home dose. Steroid quickly tapered - on high correctional scale - Last A1C 8.1 04/2016 6.Leukocytosis,acute -Due to steroids -Monitor off antibiotics. Steroid tapered Chronic conditions #Obstructive sleep apnea -continue BIPAP at night #hypertension - Continue home medicaiton - Repeat BMP in AM #Hypothyroidism -Continue home levothyroxine #atrial fibrillation - Continue home medications - Continue anticoagulation #Hyperlipidemia - Continue Statin #Asthma - Manage as above #1 #Coronary artery disease - Continue home medications -Cardiac Cath 07/2010 - LAD free of critical disease, but diagonal branches about 95% ostial disease, circumflex artery had about a 50-60% ostial and proximal disease, and inferior branch of obtuse marginal had about 70-80% proximal disease, and the right coronary about 40-50% mid disease, difficult PCI itself was unsuccessful-since that time the patient's been managed medically - If troponin trend up consider cardiology consult #Chronic back pain - Continue hydrocodone home dose 5-325 mg PO PRN Q6 CODE STATUS FULL CODE GI prophylaxis: Famotidine DVT: Warfarin Disposition: Possible discharge tomorrow on prednisone 40 mg by mouth daily for 3 more days if continues to improve and LANIE improves GI Prophylaxis: H2 chanel VTE Prophylaxis: Theraputic Anticoag with Warfarin Resuscitation Status: CPR: Attempt Resuscitation Jesus Gillespie MD Jul 27, 2016 09:12 GI Prophylaxis: H2 chanel VTE Prophylaxis: Theraputic Anticoag with Warfarin Resuscitation Status: CPR: Attempt Resuscitation Jesus Gillespie MD Jul 27, 2016 09:12
[2016-07-27] MEDS: Famotidine Inj 20 MG in IV Premix 1 EACH IV SCH (10:50)
--- NOTE | 2016-07-27 13:29 | DRSVH ---
[facility] [address] [place] [place] [address] Echocardiogram Report Name: MARY BECERRIL Study Date: 07/27/2016Height: 63 in Hospital Exam Location: [facility] Weight: 265 lb Gender: Female BSA: 2.2 m2 : 1940 Age: 75 yrs BP: 148/72 mmHg Reason For Study: COPD EXACERBATION, SHORTNESS OF BREATH Ordering Physician: [facility]OSPITALIST [facility] Performed By: Luis Alberto Aguirre Referring Physician: Elena Jewell Interpretation Summary 1. Normal left ventricular size with moderate concentric hypertrophy and hyperdynamic systolic function with an estimated EF of 75 to 80% 2. Normal right ventricular size and systolic function. 3. The mitral valve is not normal. There is evidence for severe mitral stenosis (by gradient only) When compared to the previous study of 10/15/15, the heart function appears more hyperdynamic and the mean gradient across the mitral valve is somewhat increased (although in a similar range) A 3D echocardiographic study would be helpful to better assess the mitral valve Procedure: A two-dimensional transthoracic echocardiogram with color flow and Doppler was performed. The study quality was technically difficult. Comparison is made with the echocardiogram of 10/15/15. Definity not used due to possible interatrial shunt (unchanged from last study). The patient was in normal sinus rhythm during the exam. Left Ventricle: The left ventricle is normal in size. There is moderate concentric left ventricular hypertrophy. The ejection fraction is estimated to be 75-80%. There are no focal wall motion abnormalities. Right Ventricle: The right ventricle is normal in size and function. Atria: The left atrium is moderately dilated. Right atrial size is normal. A patent foramen ovale is suspected. Mitral Valve: There is moderate to severe mitral annular calcification. The mitral valve leaflets are severely calcified. Probable chordal BELKIS. The mitral valve mean pressure gradient is 14.2 mmHg. Aortic Valve: The aortic valve is trileaflet. The aortic valve opens well. No aortic regurgitation is present. Tricuspid Valve: The tricuspid valve leaflets are thin and pliable. There is trace tricuspid regurgitation. Pulmonic Valve: The pulmonic valve is normal in structure and function. There is trace pulmonic regurgitation. Great Vessels: The aortic root is normal size. The dimensions of the ascending aorta are normal. The pulmonary artery is normal size. The IVC is of normal diameter and collapses greater than 50% with a sniff. This suggests a low right atrial pressure of 3 mm Hg. Pericardium/ Pleura There is no pericardial effusion. There is no pleural effusion. MMode/2D Measurements & Calculations LVIDd: 4.1 cm LA dimension: 4.4 cm RA long axis Ao root diam LVIDs: 2.2 cm FS: 46.5 % LA A2 area: 25.3 cm RA area Aortic Jxn: 2.4 cm EPSS: 0.81 cm LA A4 area: 29.3 cm asc Aorta Diam IVSd: 1.3 cm LA length (vol) : 16.1 cm LVPWd: 1.4 cm RA vol Ao Arch Diam (Prox LA vol: 93.6 ml : 38.3 ml Trans): 2.4 cm LA vol index RA : 17.6 mm2 IVC diam: 1.8 cm LV hernandez. diameter/BSA LV sys. diameter/BSA (cm/m^2): 1.9 (cm/m^2): 1.0 Doppler Measurements & Calculations Ao V2 max MV E max martin MV E/A: 0.90 PA V2 max : 177.2 cm/sec : 206.3 cm/sec Med Peak E' Martin : 103.1 cm/sec Ao max PG MV A max martin PA mean PG : 12.6 mmHg : 228.9 cm/sec E/E' med: 45.4 Ao mean PG MV P1/2t: 66.4 msec MV A dur: 0.17 sec PA Accel Time : 6.5 mmHg : 0.10 sec MVA(traced): 1.8 cm2 MV V2 mean MV P1/2t max martin Ao V2 mean PA V2 mean : 180.1 cm/sec : 120.5 cm/sec : 76.1 cm/sec MV mean PG MVA(P1/2t): 3.3 cm2 Ao V2 VTI: 42.1 cm PA pr(Accel) : 14.2 mmHg : 31.6 mmHg MV V2 VTI: 67.9 cm MV dec time : 0.23 sec Reading Physician:01:[id number] PM
[2016-07-27] MEDS: Mupirocin 2% 22 Gm Ointment TOPICAL SCH ×2 (14:28→19:40)
--- NOTE | 2016-07-27 15:49 | NUR ---
BS Pt Blood sugar levels have been elevated throughout shift. Morning bs 490, lunch 477. Paged Dr, ordered 15 additional units after the lunch nutritional dose of 12u. BS rechecked 1 hour after 15u given. BS 473. Paged . Giving additional 15u, will check bs 1 hour after. stated he also increased her night dose of insulin to 30u.
[2016-07-28] VITALS (11 sets, daily range): BP systolic 133–169; BP diastolic 61–77; PULSE 56–83; RESP 16–22; O2SAT 95–98
[2016-07-28] MEDS: Doxycycline Inj 100 MG in Dextrose 5% Minibag Plus 100 ML IV SCH (06:36)
[2016-07-28 06:45] LABS: INR 4.35 ratio
--- NOTE | 2016-07-28 06:45 | NUR ---
Activity Pt up to bathroom SBA with FWW. CPAP while asleep, continuous pulse ox in place. Pt sating high 90's with CPAP on. IV site leaking at change of shift, marker delivery placed new IV, NS at 10mL/hour. Call light within reach, frequent rounding.
[2016-07-28] MEDS: Albuterol-Ipratropium 3 mL Inhalation Solution NEB SCH ×3 (08:10→23:09)
[2016-07-28] MEDS: Budesonide 0.5 mg/2 mL Inhalation Solution NEB SCH ×2 (08:10→23:09)
[2016-07-28] MEDS: Isosorbide Mononitrate 60 mg ER24 Tablet PO SCH (08:16)
[2016-07-28] MEDS: Insulin LISPRO 300 Unit/3 mL Inj SUBQ SCH ×4 (08:18→21:26)
[2016-07-28] MEDS: Famotidine Inj 20 MG in IV Premix 1 EACH IV SCH (08:21)
[2016-07-28] MEDS: predniSONE 20 mg Tablet PO SCH (08:23)
[2016-07-28] MEDS: guaiFENesin 600 mg ER12 Tablet PO SCH ×2 (08:24→21:19)
[2016-07-28] MEDS: Calcium Carbonate (Oyster Shell) 500 mg Tablet PO SCH (08:26)
[2016-07-28] MEDS: MeTOProlol XL 50 mg ER24 Tablet PO SCH (08:27)
[2016-07-28] MEDS: Insulin GLARgine 100 Unit/mL Syringe SUBQ SCH ×2 (08:27→21:25)
[2016-07-28] MEDS: Mupirocin 2% 22 Gm Ointment TOPICAL SCH ×2 (08:28→21:19)
--- NOTE | 2016-07-28 09:37 | NUR ---
received TC from Nancy at [facility], she will be pt's SOPHIA ROSENBERG. She is requesting a call at [place] with dispo. ROBERT for MAINTENANCE AND ENGINEERING MANAGER.
--- NOTE | 2016-07-28 10:17 | PCM.PHAPRO ---
Progress Date of Service: Jul 28, 2016 Warfarin management per pharmacy Indication: atrial fibrillation INR goal: 2-3 Home warfarin dose: 5 mg daily except 2.5 mg on Mondays. Interacting medications: - Amiodarone, doxycycline. - Ceftriaxone and Zosyn have been discontinued. Date 1-Jul 27-Jul 28-Jul INR 2.52 3.36 4.35 INR change 0.84 0.99 Warf Dose 4MG HOLD XXXX Patient received 1 dose of 4 mg and INR has jumped from 2.5 to 4.3 over 2 days. Hold warfarin today. Pharmacy to continue to monitor and dose warfarin daily. Thank you, Neetu Gusman Pharmacist Neetu Gusman Jul 28, 2016 10:17
--- NOTE | 2016-07-28 11:09 | NUR ---
IV access IV leaking, occluded. IV D/Cd intact. Pt reports is 3rd IV that has been placed for this visit. IV therapy contacted to replace.
[2016-07-28] MEDS ORDERED: Glucose 40% Oral Gel 15 Gm Tube PO PRN (12:10)
--- NOTE | 2016-07-28 12:23 | PCM.PNMED ---
Subjective Date of Service Jul 28, 2016 Subjective Overall breathing is improving slowly. Patient does have a dry cough and a sore throat. Otherwise no specific complaints. Off O2 now on room air. Exam Vital Signs Vital Sign - Last Date Time Temp Pulse Resp B/P Pulse Ox O2 Delivery O2 Flow Rate FiO2 07/28/16 09:26 36.7 75 22 133/69 96 Room Air 07/27/16 22:53 21 Intake and Output 07/27/16 07/27/16 07/28/16 Cumulative From/Thru 15:00 23:00 07:00 07/25/16 22:57 - 07/28/16 06:41 Intake Total 1206 ml 400 ml 2920 ml Output Total 1111 ml 1711 ml Balance 95 ml 400 ml 1209 ml Intake Oral 1036 ml 400 ml 2750 ml IV Total 170 ml 170 ml Output Urine Total 1111 ml 1711 ml # Voids 3 8 # Bowel Movements 0 0 Exam Eyes; rani eom intact ENTM; well hydrated, clear CV; S1S2 present, no obvious murmur Resp; diffuse expiatory wheezing with moderate air movement GI; soft non-acute benign Skin; no rashes, dry Neuro; cn 2-12 intact, no focal motor defects Lab and Diagnostics Result Diagram: 07/27/16 0600 07/27/16 0600 X-Rays, CTs and MRIs X-Ray Chest Xray Interpretation: No cardiomegaly, no CHF. View: AP & lat Interpretation / Wet Read by: Wet read ED physician There are no acute signs of CHF, no cephalization of flow noted, no pleural effusions There does appear to be mild cardiomegaly Upper lobe opacities seen on imaging 07/21/30 seem to be resolving, however this can not be excluded until a formal read is done CXR 07/21/16 IMPRESSION: Upper lobe airspace opacities likely related to aspiration versus pneumonia. Continued radiographic surveillance to resolution is recommended. Dictated by: Maxx GALVEZ Interpreted: Katie Ambriz MD on 07/21/2016 at 16:29 Transcribed by: RENETTA on 07/21/2016 at 16:30 Approved by: Katie Ambriz M.D. on 07/22/2016 at 10:45 12-lead ECG ECG ECG Interpretation: Sinus rhythm, rate 61 Probable left atrial enlargement Borderline ST elevation, anterior leads Time: 23:48 Interpreted by: ED physician Assessment & Plan Patient is a 75 y.o. 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 Admitted for treatment of COPD exacerbation. 1. COPD and /or asthma exacerbation due to human metapneumovirus infection, acute - Likely undiagnosed acute exacerbation of COPD - continue prednisone 40 daily PO, duoneb and prn albuterol, pulmacort, 2. Initially suspected Aspiration pneumonia, failing outpatient treatment -in retrospect patient did not have a bacterial pneumonia, dc doxy 3.Acute on Chronic Kidney Injury - Baseline Cr. per outpatient records 1.2-1.4 last BMP on record 03/2016 1.4 - Continue conservative oral hydration. 4. Venous status, present on admission,chronic - Monitor I/O - Start Nystatin cream BID PRN - Continue home lasix, consider additional IV lasix if swelling does not improve once renal function normalizes 5. Diabetes, type II, insulin using, present on admission, active - Home Lantus: 30 units AM, 25 units PM, 10 units novolog before each meal, and self correction scheams. -today continue lantus 35 am and 30 pm, add 5 humalog for nutritional insulin, and medium correction - #Obstructive sleep apnea -continue BIPAP at night #hypertension - Continue home medicaiton - Repeat BMP in AM #Hypothyroidism -Continue home levothyroxine #atrial fibrillation - Continue home medications - Continue coumadin monitor daily #Hyperlipidemia - Continue Statin #Asthma - Manage as above #1 #Coronary artery disease - Continue home medications -Cardiac Cath 07/2010 - LAD free of critical disease, but diagonal branches about 95% ostial disease, circumflex artery had about a 50-60% ostial and proximal disease, and inferior branch of obtuse marginal had about 70-80% proximal disease, and the right coronary about 40-50% mid disease, difficult PCI itself was unsuccessful-since that time the patient's been managed medically - If troponin trend up consider cardiology consult #Chronic back pain - Continue hydrocodone home dose 5-325 mg PO PRN Q6 CODE STATUS FULL CODE GI prophylaxis: Famotidine DVT: Warfarin Disposition: Possible discharge tomorrow on prednisone 40 mg by mouth daily for 3 more days if continues to improve and LANIE improves GI Prophylaxis: H2 chanel VTE Prophylaxis: Theraputic Anticoag with Warfarin Resuscitation Status: CPR: Attempt Resuscitation Hood Lanza MD Jul 28, 2016 12:22
--- NOTE | 2016-07-28 16:00 | NUR ---
Social Work - Readiness for Discharge Data: EMR reviewed. Pt is on day 2 of hospitalization for COPD exacerbation. Pt likely to discharge home tomorrow per morning rounds. PT evaluated and is recommending HH. SW provided choice list and pt stated preference for [facility]. SW contacted [place] at [facility] and provided referral for RN and PT. SW updated by UR Specialist that [facility] would like to be updated at discharge so she can complete assessment for SOPHIA. Pt's to provide transport home at discharge. Face to Face in folder. SW will continue to follow for needs. Assessment: Pt who would benefit from HH [facility] SW to update [facility] at discharge. Face to Face in folder. SW will continue to follow for needs. ROULA Han
--- NOTE | 2016-07-28 17:30 | NUR ---
BS management Pts BS have been elevated through out the shift, MD aware. New order received for 6 units of nutritional insulin to be given at meals. Call light with in reach, will continue to monitor.
[2016-07-29] VITALS (13 sets, daily range): BP systolic 143–182; BP diastolic 63–79; PULSE 55–93; RESP 16–24; O2SAT 86–98
[2016-07-29] MEDS: Albuterol-Ipratropium 3 mL Inhalation Solution NEB SCH ×4 (00:32→14:09)
--- NOTE | 2016-07-29 06:38 | NUR ---
Respiration Pt SOB stable overnight, breathing ok at bedrest,significant increased SOB and wheezes when get up and ambulates to BR, intermittent cough, small yellow thick sputum, Guaifenesin given. Moderately decreased lung sounds bilaterally, coarse with some wheezes posteriorly. NEB Tx administered by RT,no additional NEB needed when offered to pt. SPO2 93-98% on RA with CPAP.
[2016-07-29 06:59] LABS: INR 2.92 ratio
[2016-07-29] MEDS: Isosorbide Mononitrate 60 mg ER24 Tablet PO SCH (07:27)
[2016-07-29] MEDS: Insulin GLARgine 100 Unit/mL Syringe SUBQ SCH ×2 (07:32→20:36)
[2016-07-29] MEDS: Insulin LISPRO 300 Unit/3 mL Inj SUBQ SCH ×4 (08:00→22:03)
--- NOTE | 2016-07-29 08:34 | PCM.DIMED ---
Discharge Instructions Date of Service Aug 01, 2016 Dates of Hospitalization Jul 26, 2016 at 02:47 Discharge Diagnosis Discharge Diagnosis COPD/Asthma exacerbation Human Metapneumo virus pneumonitis type 2 diabetes MRSA nasal colonization Diet Heart Healthy Activity Limited until seen by PCP Call your provider Fever or Chills, Shortness of breath Patient Instructions Also use a cream called mupirocin twice a day for several days until 4-17, put a little bit in each side of our nose Follow-up plan please follow up with your primary care provider with in the next few days for followup, I will send hospital summary to your doctor. Follow-up with PCP in: 1 week oHod Lanza MD Jul 29, 2016 08:34
[2016-07-29] MEDS: Famotidine Inj 20 MG in IV Premix 1 EACH IV SCH (08:36)
[2016-07-29] MEDS ORDERED: PRED50TA PO (08:38)
[2016-07-29] MEDS: Calcium Carbonate (Oyster Shell) 500 mg Tablet PO SCH (08:43)
[2016-07-29] MEDS: guaiFENesin 600 mg ER12 Tablet PO SCH ×2 (08:43→20:34)
[2016-07-29] MEDS: predniSONE 20 mg Tablet PO SCH (08:45)
[2016-07-29] MEDS: MeTOProlol XL 50 mg ER24 Tablet PO SCH (08:48)
[2016-07-29] MEDS: Mupirocin 2% 22 Gm Ointment TOPICAL SCH ×2 (08:48→20:37)
--- NOTE | 2016-07-29 08:49 | PCM.DC.MED ---
Discharge Summary Date of Service Aug 01, 2016 Dates of Hospitalization Date of Hospital Admission Jul 26, 2016 at 02:47 Date of Discharge: Aug 01, 2016 Providers: Admitting Physician: Gaby Benavidez DO Primary Care Physician: Elena Jewell MD Attending Physician: Gaby Benavidez DO Diagnosis at Time of Discharge Diagnosis at Time of Discharge 1. COPD and /or asthma exacerbation due to human metapneumovirus infection, improving 2. Acute Pneumonitis with Human metapneumovirus, improving 3.Acute on Chronic Kidney Injury, improving 4. Venous status, present on admission,chronic 5. Diabetes, type II, insulin using, present on admission, chronic 6. Nasal MRSA colonization, improving #Obstructive sleep apnea #hypertension #Hypothyroidism #atrial fibrillation #Hyperlipidemia #Coronary artery disease #Chronic back pain Procedures XRay, CTs & MRIs X-Ray Chest Xray Interpretation: No cardiomegaly, no CHF. View: AP & lat Interpretation / Wet Read by: Wet read ED physician There are no acute signs of CHF, no cephalization of flow noted, no pleural effusions There does appear to be mild cardiomegaly Upper lobe opacities seen on imaging 07/21/30 seem to be resolving, however this can not be excluded until a formal read is done CXR 07/21/16 IMPRESSION: Upper lobe airspace opacities likely related to aspiration versus pneumonia. Continued radiographic surveillance to resolution is recommended. Dictated by: Maxx Contreras [facility] Interpreted: Katie Ambriz MD on 07/21/2016 at 16:29 Transcribed by: RENETTA on 07/21/2016 at 16:30 Approved by: Katie Ambriz M.D. on 07/22/2016 at 10:45 ECG 12 Lead ECG ECG Interpretation: Sinus rhythm, rate 61 Probable left atrial enlargement Borderline ST elevation, anterior leads Time: 23:48 Interpreted by: ED physician Cardiac Echo Impression Echocardiogram Report Name: MARY BECERRIL Study Date: 07/27/2016Height: 63 in Hospital Exam Location: [facility] Weight: 265 lb Gender: Female BSA: 2.2 m2 : 1940 Age: 75 yrs BP: 148/72 mmHg Interpretation Summary 1. Normal left ventricular size with moderate concentric hypertrophy and hyperdynamic systolic function with an estimated EF of 75 to 80% 2. Normal right ventricular size and systolic function. 3. The mitral valve is not normal. There is evidence for severe mitral stenosis (by gradient only) When compared to the previous study of 10/15/15, the heart function appears more hyperdynamic and the mean gradient across the mitral valve is somewhat increased (although in a similar range) Brief History Patient is a 75 y.o. 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 She presented to ED with two week history of shortness of breath with productive cough, sputum started as green-brown color now white, one episode of blood streaked sputum but no episode since, increasing use of albuterol inhaler up to 5 times per day. She noted that her symptoms acutely worsened a few hours prior to admission. Patient stated she was sitting down washing dishes and bending over when she became so short of breath she was unable to catch her breath. Patient noted that she felt very dizzy but did not pass out, she told her to help her out to the care and go to the Emergency department. Patient did not notice any change in symptoms during time of day, stating that symptoms are constant and worsening. She noted associated symptoms of orthopnea, PND, exertional dyspnea, chills, night sweats x1, increased swelling in her legs ( patient noted she has chronic LLE edema and this is one of "her bad days"), decreased appetite. Patient denies syncope, weight loss, fever, change in vision , dysuria, constipation, diarrhea. Patient has ever been hospitalized for respiratory issues in the past. In the ED patient was given 5 treatment of duo neb, 10 mg IV Dexamethasone, patient reported temporary relief, but eventual return of symptoms. Per out patient record patient seen by PCP 07/21/16 for breathing difficulty, report indicated that her was recently diagnosed with pneumonia, patient treated for asthma exacerbation 50 mg Prednisone for 5 days with CXR ordered and showed bilateral opacities in upper lobes of lungs, PCP called in script for Doxycycline 100 mg BID 07/23/16. Hospital Course Patient is a 75 y.o. 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 Admitted for treatment of COPD exacerbation. 1. COPD and /or asthma exacerbation due to human metapneumovirus infection, improving - Likely undiagnosed acute exacerbation of COPD - discharge on prednisone 50 daily for 3 days PO, duoneb and prn albuterol, pulmacort, - Follow up with pcp next few days 2. Initially suspected Aspiration pneumonia, failing outpatient treatment - in retrospect patient did not have a bacterial pneumonia, dc doxy 3. Acute pneumonitis, with human metapneumovirus, improving -supportive care 3.Acute on Chronic Kidney Injury - Baseline Cr. per outpatient records 1.2-1.4 last BMP on record 03/2016 1.4 -creatinine at discharge better at 1.53, out patient follow up 4. Venous status, present on admission,chronic - Monitor I/O - Continue home lasix, consider additional IV lasix if swelling does not improve once renal function normalizes 5. Diabetes, type II, insulin using, present on admission, active - Home Lantus: 30 units AM, 25 units PM, 10 units novolog before each meal, and self correction scheams. - discharge on home dose 6. MRSA colonization of nares, chronic, present on admission - discharge on mupirocin cream to nares bid for next few days until 08-03-16 #Obstructive sleep apnea -continue BIPAP at night #hypertension - Continue home medicaiton - Repeat BMP in AM #Hypothyroidism -Continue home levothyroxine #atrial fibrillation - Continue home medications - Continue coumadin monitor daily #Hyperlipidemia - Continue Statin #Coronary artery disease - Continue home medications -Cardiac Cath 07/2010 - LAD free of critical disease, but diagonal branches about 95% ostial disease, circumflex artery had about a 50-60% ostial and proximal disease, and inferior branch of obtuse marginal had about 70-80% proximal disease, and the right coronary about 40-50% mid disease, difficult PCI itself was unsuccessful-since that time the patient's been managed medically - If troponin trend up consider cardiology consult #Chronic back pain - Continue hydrocodone home dose 5-325 mg PO PRN Q6 Exam Vital Signs (Last) Date Time Temp Pulse Resp B/P Pulse Ox O2 Delivery O2 Flow Rate FiO2 07/29/16 05:25 60 20 153/78 97 BiPAP 07/29/16 05:19 36.4 07/27/16 22:53 21 Exam Patien alert and oriented, sitting up in chair Lungs are now clear, good air movement S1S2 present, irregular about 75/min Abdomen soft and benign Extremities with some edema and stasis changes Test 07/26/16 00:43 07/26/16 01:00 07/26/16 05:52 07/26/16 08:29 Hold Liz Top Tube Received (Received) Hold Purple Top Tube Received (Received) Activated Partial Thromboplast Time 33.7sec (22.8-33.0) Hold Blue Top Tube Received (Received) Hemoglobin A1c 7.6% (4.8-5.6) Magnesium Level 1.9mg/dL (1.6-2.6) Pro-B-Type Natriuretic Peptide 841.7pg/mL (0-738) Hold Red Top Tube Received (Received) Hold [place] Top Tube Received (Received) Total Bilirubin 0.2mg/dL (0.0-1.2) Aspartate Amino Transf (AST/SGOT) 22U/L (0-50) Alanine Aminotransferase (ALT/SGPT) 22U/L (0-32) Alkaline Phosphatase 59U/L (25-165) Troponin T 0.010ug/L (0.0-0.011) Total Protein 6.5g/dL (6.4-8.4) Albumin 3.4g/dL (3.4-5.0) Urine Color Straw (YELLOW) Urine Appearance Clear (CLEAR,HAZY) Urine pH 5.5 (5.0-8.0) Urine Specific [place] 1.018 (1.003-1.035) Urine Protein Tracemg/dL (NEG,TRACE) Urine Glucose (UA) Negativemg/dL (NEGATIVE) Urine Ketones Tracemg/dL (NEGATIVE) Urine Occult Blood Negative (NEGATIVE) Urine Nitrite Negative (NEGATIVE) Urine Bilirubin Negative (NEGATIVE) Urine Urobilinogen Normalmg/dL (NORMAL) Urine Leukocyte Esterase Trace (NEGATIVE) Urine RBC 0-2/hpf (0-2) Urine WBC 0-5/hpf (0-5) Urine Epithelial Cells Few/hpf (NONE-MOD) Urine Crystals None seen (NONE SEEN) Urine Bacteria Few/hpf (NONE-FEW) Urine Hyaline Casts None/lpf (NONE) Urine Granular Casts None seen (NONE SEEN) Urine Waxy Casts None seen (NONE SEEN) Urine Red Blood Cell Casts None seen (NONE SEEN) Urine White Blood Cell Casts None seen (NONE SEEN) Urine Mucus None seen (None Seen) Urine Trichomonas None seen (NONE SEEN) Urine Yeast None (NONE SEEN) Urinalysis Comment None Urine Culture Reflexed Indicated Test 07/27/16 06:00 07/29/16 06:00 White Blood Count 16.5th/mm3 (3.8-10.1) Red Blood Count 4.08mil/mm3 (3.90-5.20) Hemoglobin 11.1g/dL (12.0-15.6) Hematocrit 34.5% (35.0-46.0) Mean Corpuscular Volume 84.6fL (81-100) Mean Corpuscular Hemoglobin 27.2pg (27.0-35.0) Mean Corpuscular Hemoglobin Concent 32.2% (32.0-37.0) Red Cell Distribution Width 15.2% (12.3-15.4) Platelet Count 233bil/L (150-400) Neutrophils (%) (Auto) 94.4% (40-74) Lymphocytes (%) (Auto) 1.9% (14-46) Monocytes (%) (Auto) 3.5% (4-12) Eosinophils (%) (Auto) 0% (0-5) Basophils (%) (Auto) 0% (0-3) Procalcitonin 0.06ng/mL (0.00-0.08) Prothrombin Time 31.9sec (8.1-12.5) Prothromb Time International Ratio 2.92ratio Sodium Level 140mEq/L (134-144) Potassium Level 4.2mEq/L (3.5-5.2) Chloride Level 102mEq/L (97-108) Carbon Dioxide Level 24mmol/L (18-29) Blood Urea Nitrogen 47mg/dL (8-27) Creatinine 1.53mg/dL (0.57-1.00) Estimat Glomerular Filtration Rate 48mL/min (>59) Glucose Level 162mg/dL (60-99) Calcium Level 8.8mg/dL (8.5-10.1) Discharge Medications Discharge Medications ([qvar ]) 40 MCG BID (Reported) Amiodarone (Amiodarone) 200 Mg Tablet 100 MG PO AM (Reported) Amlodipine (Amlodipine) 5 Mg Tablet 10 MG PO DAILY (Reported) Aspirin Chew (Aspirin Chew) 81 Mg Chew 81 MG PO DAILY (Reported) Atorvastatin Calcium (Atorvastatin Calcium) 40 Mg Tablet 80 MG PO DAILY ( Reported) Calcium Carbonate (Tums) 500 Mg Tab.chew 1,000 MG PO DAILY (Reported) Ferrous Sulfate (Ferrous Sulfate) 325 Mg Tablet 325 MG PO DAILY (Reported) Fluticasone Propionate (Flovent HFA 110 mcg) 12 Gm Aer.w.adap 1 PUFF IH BID ( Reported) Furosemide (Furosemide) 40 Mg Tablet 80 MG PO DAILY (Reported) Insulin Aspart (NovoLOG U-100 Pen) 100 Unit/Ml Insuln.pen 16 SQ AC (Reported) Insulin Glargine (Lantus U100 Solostar Insulin Pen) 100 Unit/1 Ml Insuln.pen 30 UNIT SUBQ MORNING (Reported) Insulin Glargine (Lantus U100 Solostar Insulin Pen) 100 Unit/1 Ml Insuln.pen 25 UNIT SUBQ QPM (Reported) Isosorbide MN ER (Isosorbide MN ER) 120 Mg Tab.er.24h 120 MG PO AM (Reported) Levothyroxine (Levothyroxine) 88 Mcg Tablet 75 MCG PO DAILY (Reported) Losartan Potassium (Losartan Potassium) 50 Mg Tablet 50 MG PO DAILY (Reported) Magnesium Oxide (Magnesium Oxide) 250 Mg Tablet 250 MG PO DAILY Prescribed by: ELBA BERUMEN DO Metoprolol Succinate ER (Metoprolol Succinate ER) 50 Mg Tab.er.24h 200 MG PO DAILY Prescribed by: BELLA DOZIER MD Multivitamin (Once Daily) 1 Each Tablet 1 EACH PO DAILY (Reported) Mupirocin (Mupirocin Ointment) 22 Gm Oint...g. 1 APPLIC TOPICAL BID Prescribed by: Hood LANZA MD [place]-3 Fatty Acids/Fish Oil ([place] 3 1,000 mg Softgel) 1 Each Capsule 1 EACH PO DAILY (Reported) Omeprazole (Omeprazole) 20 Mg Capsule.dr 20 MG PO DAILY (Reported) Prednisone (PredniSONE) 50 Mg Tablet 50 MG PO DAILY Prescribed by: Hood LANZA MD Prednisone (PredniSONE) 20 Mg Tablet 40 MG PO DAILY Prescribed by: Hood LANZA MD Warfarin Sodium (Warfarin Sodium) 5 Mg Tablet 2.5 MG PO DIRECTED (Reported) Mon, Wed, Thu Warfarin Sodium (Coumadin) 5 Mg Tablet 5 MG PO DAILY (Reported) Take thu, thu, , thu As needed Albuterol HFA (Proair HFA) 8.5 Gm Hfa.aer.ad 2 PUFFS IH Q4 PRN PRN For Shortness of Breath (Reported) Hydrocodone-Acetaminophen 5-325 mg (Hydrocodone-Acetaminophen 5-325 mg) 1 Each Tablet 1 EACH PO TID PRN PRN For Pain (Reported) Nitroglycerin SL (Nitrostat) 0.4 Mg Tab.subl 0.4 MG SL Q5MIN PRN PRN For Chest Pain (Reported) Followup Plan Follow-up plan please follow up with your primary care provider with in the next few days for followup, I will send hospital summary to your doctor. Discharge Diet: Heart Healthy Discharge Activity: Limited until seen by PCP Follow-up with PCP in: 1 week Time spent 40 minutes spent discharging patient so far today, current time is 8:45 am Hood Lanza MD Jul 29, 2016 08:49
[2016-07-29] MEDS: Budesonide 0.5 mg/2 mL Inhalation Solution NEB SCH ×2 (09:46→21:07)
--- NOTE | 2016-07-29 10:08 | NUR ---
Social Work - Discharge Data: Pt is on day 3 of hospitalization for COPD exacerbation and has been medically cleared to discharge home with [facility]. TONNY met with pt at bedside to inform her that services have been set up with [facility]. TONNY contacted [facility] to inform them that Face to Face is completed. TONNY contacted Nancy with [place] [facility] [phone] and she will follow up to complete SOPHIA assessment. Pt's to provide transport home at discharge. All updated and agreeable to plan. Assessment: Pt who would benefit from and SOPHIA services. Plan: Pt to discharge home via POV. TONNY contacted Nancy with [place] [facility] [phone] and she will follow up to complete SOPHIA assessment. Pt's to provide transport home at discharge. ROULA Han Addendum: 07/29/16 at 1247 by LUIZ ROTH SS TONNY updated by that pt will not be discharging home today. TONNY will follow up with pt tomorrow but anticipate pt to return home with . ROULA Han
--- NOTE | 2016-07-29 11:03 | NUR ---
Discharge Note Pt denied any pain this morning, up with SBA using FWW to the chair for breakfast. Pt verbalized understanding of all discharge instructions, medications/Rx, and follow up appt. Care Notes provided. Pt ready to discharge home with all belongings, accompanied by .
[2016-07-29] MEDS ORDERED: Furosemide 10 mg/mL 4 mL Inj IVPUSH ONE (11:26)
[2016-07-29] MEDS ORDERED: predniSONE 20 mg Tablet PO ONE (11:26)
--- NOTE | 2016-07-29 11:35 | PCM.PNMED ---
Subjective Date of Service Jul 29, 2016 Subjective Patient was seen this AM and tentatively discharged but got SOB again with wheezing so discharge canceled. Exam Vital Signs Vital Sign - Last Date Time Temp Pulse Resp B/P Pulse Ox O2 Delivery O2 Flow Rate FiO2 07/29/16 09:46 56 20 96 Room Air 07/29/16 05:25 153/78 07/29/16 05:19 36.4 07/27/16 22:53 21 Intake and Output 07/28/16 07/28/16 07/29/16 Cumulative From/Thru 15:00 23:00 07:00 07/25/16 22:57 - 07/29/16 05:19 Intake Total 1498 ml 4418 ml Output Total 1711 ml Balance 1498 ml 2707 ml Intake Oral 1120 ml 3870 ml IV Total 378 ml 548 ml Output Urine Total 1711 ml # Voids 4 12 # Bowel Movements 0 0 Exam Eyes; rani eom intact ENTM; well hydrated, clear CV; S1S2 present, no obvious murmur, 3 plus edema Resp; diffuse expiatory wheezing with moderate air movement later in the morning, clear earlier GI; soft non-acute benign Skin; no rashes, dry Neuro; cn 2-12 intact, no focal motor defects Lab and Diagnostics Result Diagram: 07/27/16 0600 07/29/16 0600 X-Rays, CTs and MRIs X-Ray Chest Xray Interpretation: No cardiomegaly, no CHF. View: AP & lat Interpretation / Wet Read by: Wet read ED physician There are no acute signs of CHF, no cephalization of flow noted, no pleural effusions There does appear to be mild cardiomegaly Upper lobe opacities seen on imaging 07/21/30 seem to be resolving, however this can not be excluded until a formal read is done CXR 07/21/16 IMPRESSION: Upper lobe airspace opacities likely related to aspiration versus pneumonia. Continued radiographic surveillance to resolution is recommended. Dictated by: Maxx GALVEZ Interpreted: Katie Ambriz MD on 07/21/2016 at 16:29 Transcribed by: RENETTA on 07/21/2016 at 16:30 Approved by: Katie Ambriz M.D. on 07/22/2016 at 10:45 12-lead ECG ECG ECG Interpretation: Sinus rhythm, rate 61 Probable left atrial enlargement Borderline ST elevation, anterior leads Time: 23:48 Interpreted by: ED physician Cardiac Echo Impressions Echocardiogram Report Name: MARY BECERRIL Study Date: 07/27/2016Height: 63 in Hospital Exam Location: [facility] Weight: 265 lb Gender: Female BSA: 2.2 m2 : 1940 Age: 75 yrs BP: 148/72 mmHg Interpretation Summary 1. Normal left ventricular size with moderate concentric hypertrophy and hyperdynamic systolic function with an estimated EF of 75 to 80% 2. Normal right ventricular size and systolic function. 3. The mitral valve is not normal. There is evidence for severe mitral stenosis (by gradient only) When compared to the previous study of 10/15/15, the heart function appears more hyperdynamic and the mean gradient across the mitral valve is somewhat increased (although in a similar range) Assessment & Plan Patient is a 75 y.o. 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 Admitted for treatment of COPD exacerbation. 1. COPD and /or asthma exacerbation due to human metapneumovirus infection, improving - Likely undiagnosed acute exacerbation of COPD - cancle discharge - prednisone , duoneb and prn albuterol, pulmacort, - repeat lab, CXR, ekg 2. Initially suspected Aspiration pneumonia, failing outpatient treatment - in retrospect patient did not have a bacterial pneumonia, dc doxy 3. Acute pneumonitis, with human metapneumovirus, improving -supportive care 3.Acute on Chronic Kidney Injury - Baseline Cr. per outpatient records 1.2-1.4 last BMP on record 03/2016 1.4 -creatinine at discharge better at 1.53, out patient follow up 4. Venous status, present on admission,chronic - Monitor I/O - Lasix 40 IV now one dose 5. Diabetes, type II, insulin using, present on admission, active - Home Lantus: 30 units AM, 25 units PM, 10 units novolog before each meal, and self correction scheams. - discharge on home dose 6. MRSA colonization of nares, chronic, present on admission - discharge on mupirocin cream to nares bid for next few days until 4-9-17 #Obstructive sleep apnea -continue BIPAP at night #hypertension - Continue home medicaiton - Repeat BMP in AM #Hypothyroidism -Continue home levothyroxine #atrial fibrillation - Continue home medications - Continue coumadin monitor daily #Hyperlipidemia - Continue Statin #Coronary artery disease - Continue home medications -Cardiac Cath 07/2010 - LAD free of critical disease, but diagonal branches about 95% ostial disease, circumflex artery had about a 50-60% ostial and proximal disease, and inferior branch of obtuse marginal had about 70-80% proximal disease, and the right coronary about 40-50% mid disease, difficult PCI itself was unsuccessful-since that time the patient's been managed medically - If troponin trend up consider cardiology consult #Chronic back pain - Continue hydrocodone home dose 5-325 mg PO PRN Q6 GI Prophylaxis: H2 chanel VTE Prophylaxis: Theraputic Anticoag with Warfarin Resuscitation Status: CPR: Attempt Resuscitation Hood Lanza MD Jul 29, 2016 11:34
--- NOTE | 2016-07-29 11:41 | PCM.PHAPRO ---
Progress Date of Service: Jul 29, 2016 Warfarin management per pharmacy Indication: atrial fibrillation INR goal: 2-3 Home warfarin dose: 5 mg daily except 2.5 mg on Mondays. Interacting medications: - Amiodarone - Ceftriaxone and Zosyn have been discontinued. - Plan for patient to be discharged today. Will order today's warfarin in case discharge is delayed. Date 1-Jul 2-Jul 3-Jul 29-Jul INR 2.52 3.36 4.35 2.92 INR change 0.84 0.99 -1.43 Warf Dose 4MG HOLD HOLD xxxxxx INR is back in therapeutic range and trending down. Give warfarin 2 mg PO today at 1700. Pharmacy to continue to monitor and dose warfarin daily. Thank you, Mali Gusman Pharmacist Mali Gusman Jul 29, 2016 11:41
--- NOTE | 2016-07-29 12:05 | DRSVH ---
PROCEDURE: X-RAY CHEST ONE VIEW, PORTABLE ([id number]) INDICATIONS: SHORTNESS OF BREATH TECHNIQUE: One view of the chest was acquired. COMPARISON: 07/25/2016 FINDINGS: Surgical changes and devices: None. Lungs and pleura: No pleural effusions or pneumothorax. Lungs are clear. Mediastinum: Mediastinal contours appear normal. Heart size is normal. Bones and chest wall: No suspicious bony lesions. Overlying soft tissues appear unremarkable. IMPRESSION: No acute cardiopulmonary abnormality Dictated by: Navdeep Lane M.D. on 07/29/2016 at 12:03 Approved by: Navdeep Lane M.D. on 07/29/2016 at 12:03
[2016-07-29 12:24] LABS: BASOPHILS % (AUTO) 0 % (0-3); EOSINOPHILS % (AUTO) 0.2 % (0-5); MONOCYTES % (AUTO) 5.9 % (4-12); Mean Corpuscular Hemoglobin 27.4 pg (27.0-35.0); Mean Corpuscular Volume 84.8 fL (81-100); NEUTROPHILS % (AUTO) 89.6 % (40-74); Platelet Count 255 bil/L (150-400)
--- NOTE | 2016-07-29 16:15 | NUR ---
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 SW agreed to contact her when pt is discharged. ROULA Han
[2016-07-30] VITALS (12 sets, daily range): BP systolic 134–180; BP diastolic 65–76; PULSE 63–77; RESP 18–24; O2SAT 94–97
[2016-07-30] MEDS: Albuterol-Ipratropium 3 mL Inhalation Solution NEB SCH ×5 (01:09→20:19)
--- NOTE | 2016-07-30 02:17 | NUR ---
Hypertension BP 180/73 and 182/67 during night. aware, monitoring for now. Addendum: 07/30/16 at 0220 by FORTUNATO TREJO RN Asymptomatic without chest pain or headache/diaphoresis.
[2016-07-30 07:00] LABS: INR 2.09 ratio
[2016-07-30] MEDS: Insulin LISPRO 300 Unit/3 mL Inj SUBQ SCH ×4 (07:55→21:15)
[2016-07-30] MEDS: Calcium Carbonate (Oyster Shell) 500 mg Tablet PO SCH (07:57)
[2016-07-30] MEDS: Insulin GLARgine 100 Unit/mL Syringe SUBQ SCH ×2 (07:57→21:14)
[2016-07-30] MEDS: Mupirocin 2% 22 Gm Ointment TOPICAL SCH ×2 (07:58→19:50)
[2016-07-30] MEDS: Isosorbide Mononitrate 60 mg ER24 Tablet PO SCH (07:58)
[2016-07-30] MEDS: Famotidine Inj 20 MG in IV Premix 1 EACH IV SCH (08:38)
[2016-07-30] MEDS: predniSONE 20 mg Tablet PO SCH (08:40)
[2016-07-30] MEDS: MeTOProlol XL 50 mg ER24 Tablet PO SCH (08:42)
[2016-07-30] MEDS: guaiFENesin 600 mg ER12 Tablet PO SCH ×2 (08:42→19:48)
--- NOTE | 2016-07-30 10:19 | PCM.PHAPRO ---
Progress Date of Service: Jul 30, 2016 Warfarin management per pharmacy Indication: atrial fibrillation INR goal: 2-3 Home warfarin dose: 5 mg daily except 2.5 mg on Mondays. Interacting medications: - Amiodarone (home med) - Ceftriaxone and Zosyn have been discontinued. Date 1-Jul 27-Jul 28-Jul 29-Jul 30-Jul INR 2.52 3.36 4.35 2.92 2.09 INR change 0.84 0.99 -1.43 -0.83 Warf Dose 4MG HOLD HOLD 2 MG XXXX INR is therapeutic but trending down after warfarin was held for 2 days after INR jumped significantly following a 4 mg dose. However, most interacting medications have since been discontinued. Amiodarone is continued at patient's home dose so unlikely to cause significant changes to INR. Give warfarin 3 mg PO today at 1700. Pharmacy to continue to monitor and dose warfarin daily. Thank you, Mali Gusman Pharmacist Mali Gusman Jul 30, 2016 10:19
[2016-07-30] MEDS: Budesonide 0.5 mg/2 mL Inhalation Solution NEB SCH ×2 (10:24→20:18)
--- NOTE | 2016-07-30 11:14 | PCM.PNMED ---
Subjective Date of Service Jul 30, 2016 Subjective Breathing feels a bit better this AM. Did diurese a lot with the lasix. No other complaints. CXR, lab OK Exam Vital Signs Vital Sign - Last Date Time Temp Pulse Resp B/P Pulse Ox O2 Delivery O2 Flow Rate FiO2 07/30/16 10:42 36.4 64 22 138/76 95 Room Air 07/27/16 22:53 21 Intake and Output 07/29/16 07/29/16 07/30/16 Cumulative From/Thru 15:00 23:00 07:00 07/25/16 22:57 - 07/30/16 06:05 Intake Total 175 ml 1870 ml 600 ml 7063 ml Output Total 1250 ml 1950 ml 1250 ml 6161 ml Balance -1075 ml -80 ml -650 ml 902 ml Intake Oral 175 ml 1870 ml 600 ml 6515 ml IV Total 548 ml Output Urine Total 1250 ml 1950 ml 1250 ml 6161 ml # Voids 4 16 # Bowel Movements 1 1 2 Exam Eyes; rani eom intact ENTM; well hydrated, clear CV; S1S2 present, no obvious murmur, 1.5 edema Resp; diffuse expiatory wheezing with moderate air movement GI; soft non-acute benign Skin; no rashes, dry Neuro; cn 2-12 intact, no focal motor defects Lab and Diagnostics Result Diagram: 07/29/16 1210 07/29/16 1210 X-Rays, CTs and MRIs X-Ray Chest Xray Interpretation: No cardiomegaly, no CHF. View: AP & lat Interpretation / Wet Read by: Wet read ED physician There are no acute signs of CHF, no cephalization of flow noted, no pleural effusions There does appear to be mild cardiomegaly Upper lobe opacities seen on imaging 07/21/30 seem to be resolving, however this can not be excluded until a formal read is done CXR 07/21/16 IMPRESSION: Upper lobe airspace opacities likely related to aspiration versus pneumonia. Continued radiographic surveillance to resolution is recommended. Dictated by: Maxx Contreras RRA Interpreted: Katie Ambriz MD on 07/21/2016 at 16:29 Transcribed by: RENETTA on 07/21/2016 at 16:30 Approved by: Katie Ambriz M.D. on 07/22/2016 at 10:45 12-lead ECG ECG ECG Interpretation: Sinus rhythm, rate 61 Probable left atrial enlargement Borderline ST elevation, anterior leads Time: 23:48 Interpreted by: ED physician Cardiac Echo Impressions Echocardiogram Report Name: MARY BECERRIL Study Date: 07/27/2016Height: 63 in Hospital Exam Location: [facility] Weight: 265 lb Gender: Female BSA: 2.2 m2 : 1940 Age: 75 yrs BP: 148/72 mmHg Interpretation Summary 1. Normal left ventricular size with moderate concentric hypertrophy and hyperdynamic systolic function with an estimated EF of 75 to 80% 2. Normal right ventricular size and systolic function. 3. The mitral valve is not normal. There is evidence for severe mitral stenosis (by gradient only) When compared to the previous study of 10/15/15, the heart function appears more hyperdynamic and the mean gradient across the mitral valve is somewhat increased (although in a similar range) Assessment & Plan Patient is a 75 y.o. 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 Admitted for treatment of COPD exacerbation. 1. COPD and /or asthma exacerbation due to human metapneumovirus infection, improving - Likely undiagnosed acute exacerbation of COPD - cancle discharge - prednisone , duoneb and prn albuterol, pulmacort, - repeat lab, CXR, ekg 2. Initially suspected Aspiration pneumonia, failing outpatient treatment - in retrospect patient did not have a bacterial pneumonia, dc doxy 3. Acute pneumonitis, with human metapneumovirus, improving -supportive care 3.Acute on Chronic Kidney Injury - Baseline Cr. per outpatient records 1.2-1.4 last BMP on record 03/2016 1.4 -creatinine at discharge better at 1.53, out patient follow up 4. Venous status, present on admission,chronic - Monitor I/O - Lasix 40 IV now one dose 5. Severe Mitral Stenosis, POA, active -will increase lasix to 80 q am from 40 and continue to mobilize some fluid 5. Diabetes, type II, insulin using, present on admission, active - Home Lantus: 30 units AM, 25 units PM, 10 units novolog before each meal, and self correction scheams. - discharge on home dose 6. MRSA colonization of nares, chronic, present on admission - discharge on mupirocin cream to nares bid for next few days until 08-03-16 #Obstructive sleep apnea -continue BIPAP at night #hypertension - Continue home medicaiton - Repeat BMP in AM #Hypothyroidism -Continue home levothyroxine #atrial fibrillation - Continue home medications - Continue coumadin monitor daily #Hyperlipidemia - Continue Statin #Coronary artery disease - Continue home medications -Cardiac Cath 07/2010 - LAD free of critical disease, but diagonal branches about 95% ostial disease, circumflex artery had about a 50-60% ostial and proximal disease, and inferior branch of obtuse marginal had about 70-80% proximal disease, and the right coronary about 40-50% mid disease, difficult PCI itself was unsuccessful-since that time the patient's been managed medically - If troponin trend up consider cardiology consult #Chronic back pain - Continue hydrocodone home dose 5-325 mg PO PRN Q6 GI Prophylaxis: H2 chanel VTE Prophylaxis: Theraputic Anticoag with Warfarin Resuscitation Status: CPR: Attempt Resuscitation Hood Lanza MD Jul 30, 2016 11:13
--- NOTE | 2016-07-30 11:54 | NUR ---
Social Work: Continued d/c planning Data: Pt is on day 4 of hospitalization. EMR reviewed. Pt discussed in rounds. MD states pt likely to d/c tomorrow. REVERSE UNIT OPERATOR FISHERMAN updated Home and die try out worker. REVERSE UNIT OPERATOR FISHERMAN will continue to follow. Assessment: Pt who is independent at baseline. Plan: Pt will d/c home via POV when medically stable with Doretha RED RN/PT. REVERSE UNIT OPERATOR FISHERMAN will continue to follow. ROULA Mcdonald
--- NOTE | 2016-07-30 19:36 | NUR ---
Respiratory- Patient short of breath with exertion, but no distress at rest. Room air throughout the day. Bilateral exp. wheezes. No cough. Up to bathroom and in chair for meals.Tele- sinus rhythm.
[2016-07-31] VITALS (12 sets, daily range): BP systolic 135–183; BP diastolic 55–74; PULSE 64–86; RESP 20–24; O2SAT 89–98
[2016-07-31] MEDS: Albuterol-Ipratropium 3 mL Inhalation Solution NEB SCH ×4 (03:48→20:09)
--- NOTE | 2016-07-31 06:12 | NUR ---
Respiratory Pt on CPAP while sleeping, continuous pulse ox in place. Pt on RA while awake. Pt having intermittent coughing, pt reporting thick yellow sputum. Pt has audible wheezing after ambulation. Pt awoke stating she felt like her CPAP was producing too much humidification. RT in to see pt for neb treatment and assist in adjusting CPAP setting. Call light within reach, frequent rounding.
[2016-07-31 06:28] LABS: INR 2.15 ratio
[2016-07-31] MEDS: predniSONE 20 mg Tablet PO SCH (07:37)
[2016-07-31] MEDS: Insulin GLARgine 100 Unit/mL Syringe SUBQ SCH ×2 (07:40→21:54)
[2016-07-31] MEDS: Insulin LISPRO 300 Unit/3 mL Inj SUBQ SCH ×4 (07:42→21:59)
[2016-07-31] MEDS: guaiFENesin 600 mg ER12 Tablet PO SCH ×2 (07:43→19:56)
[2016-07-31] MEDS: Calcium Carbonate (Oyster Shell) 500 mg Tablet PO SCH (07:44)
[2016-07-31] MEDS: Isosorbide Mononitrate 60 mg ER24 Tablet PO SCH (07:44)
[2016-07-31] MEDS: MeTOProlol XL 50 mg ER24 Tablet PO SCH (07:45)
[2016-07-31] MEDS: Mupirocin 2% 22 Gm Ointment TOPICAL SCH ×2 (07:49→19:56)
[2016-07-31] MEDS: Budesonide 0.5 mg/2 mL Inhalation Solution NEB SCH ×2 (08:05→20:09)
--- NOTE | 2016-07-31 09:02 | PCM.PHAPRO ---
Progress 4-Apr 5-Apr 6-Apr 2.92 2.09 2.15 -1.43 -0.83 0.06 2 MG 3 MG 3 MG Aguila Becker Pharm.D Jul 31, 2016 09:02
--- NOTE | 2016-07-31 09:11 | PCM.PNMED ---
Subjective Date of Service Jul 31, 2016 Subjective Slowlly improving but still gets very sob with any ambulation. Clear sputum. Blood sugars a bit elevated. Exam Vital Signs Vital Sign - Last Date Time Temp Pulse Resp B/P Pulse Ox O2 Delivery O2 Flow Rate FiO2 07/31/16 07:30 76 20 92 Room Air 07/31/16 05:12 36.4 174/70 07/27/16 22:53 21 Intake and Output 07/30/16 07/30/16 07/31/16 Cumulative From/Thru 15:00 23:00 07:00 07/25/16 22:57 - 07/31/16 06:28 Intake Total 1750 ml 300 ml 9113 ml Output Total 1525 ml 600 ml 8286 ml Balance 225 ml -300 ml 827 ml Intake Oral 1750 ml 300 ml 8565 ml IV Total 548 ml Output Urine Total 1525 ml 600 ml 8286 ml # Voids 16 # Bowel Movements 2 4 Exam Eyes; rani eom intact ENTM; well hydrated, clear CV; S1S2 present, no obvious murmur, 1+ edema, improved Resp; better air movement and wheezing more scattered, all expiratory. GI; soft non-acute benign Skin; no rashes, dry Neuro; cn 2-12 intact, no focal motor defects Lab and Diagnostics Result Diagram: 07/29/16 1210 07/31/16 0540 X-Rays, CTs and MRIs X-Ray Chest Xray Interpretation: No cardiomegaly, no CHF. View: AP & lat Interpretation / Wet Read by: Wet read ED physician There are no acute signs of CHF, no cephalization of flow noted, no pleural effusions There does appear to be mild cardiomegaly Upper lobe opacities seen on imaging 07/21/30 seem to be resolving, however this can not be excluded until a formal read is done CXR 07/21/16 IMPRESSION: Upper lobe airspace opacities likely related to aspiration versus pneumonia. Continued radiographic surveillance to resolution is recommended. Dictated by: Maxx LOPEZA Interpreted: Katie Ambriz MD on 07/21/2016 at 16:29 Transcribed by: RENETTA on 07/21/2016 at 16:30 Approved by: Katie Ambriz M.D. on 07/22/2016 at 10:45 12-lead ECG ECG ECG Interpretation: Sinus rhythm, rate 61 Probable left atrial enlargement Borderline ST elevation, anterior leads Time: 23:48 Interpreted by: ED physician Cardiac Echo Impressions Echocardiogram Report Name: MARY BECERRIL Study Date: 07/27/2016Height: 63 in Hospital Exam Location: [facility] Weight: 265 lb Gender: Female BSA: 2.2 m2 : 1940 Age: 75 yrs BP: 148/72 mmHg Interpretation Summary 1. Normal left ventricular size with moderate concentric hypertrophy and hyperdynamic systolic function with an estimated EF of 75 to 80% 2. Normal right ventricular size and systolic function. 3. The mitral valve is not normal. There is evidence for severe mitral stenosis (by gradient only) When compared to the previous study of 10/15/15, the heart function appears more hyperdynamic and the mean gradient across the mitral valve is somewhat increased (although in a similar range) Assessment & Plan Patient is a 75 y.o. 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 Admitted for treatment of COPD exacerbation. 1. COPD and /or asthma exacerbation due to human metapneumovirus infection, improving - Likely undiagnosed acute exacerbation of COPD - prednisone 60 , duoneb qid and prn albuterol, pulmacort, 2. Initially suspected Aspiration pneumonia, failing outpatient treatment - in retrospect patient did not have a bacterial pneumonia, dc doxy 3. Acute pneumonitis, with human metapneumovirus, improving -supportive care 3.Acute on Chronic Kidney Injury - Baseline Cr. per outpatient records 1.2-1.4 last BMP on record 03/2016 1.4 -creatinine at better at 1.53, out patient follow up 4. Venous status, present on admission,chronic - Monitor I/O - Lasix 20 IV now one dose today 5. Severe Mitral Stenosis, POA, active -will increase lasix to 80 q am from 40 and continue to mobilize some fluid 5. Diabetes, type II, insulin using, present on admission, active - Home Lantus: 30 units AM, 25 units PM, 10 units novolog before each meal, and self correction scheams. - discharge on home dose 6. MRSA colonization of nares, chronic, present on admission - discharge on mupirocin cream to nares bid for next few days until 08-03-16 #Obstructive sleep apnea -continue BIPAP at night #hypertension - Continue home medicaiton - Repeat BMP in AM #Hypothyroidism -Continue home levothyroxine #atrial fibrillation - Continue home medications - Continue coumadin monitor daily #Hyperlipidemia - Continue Statin #Coronary artery disease - Continue home medications -Cardiac Cath 07/2010 - LAD free of critical disease, but diagonal branches about 95% ostial disease, circumflex artery had about a 50-60% ostial and proximal disease, and inferior branch of obtuse marginal had about 70-80% proximal disease, and the right coronary about 40-50% mid disease, difficult PCI itself was unsuccessful-since that time the patient's been managed medically - If troponin trend up consider cardiology consult #Chronic back pain - Continue hydrocodone home dose 5-325 mg PO PRN Q6 3Disposition -patient remains very weak and sob, may need SNF at DC,, will get pt evaluation and discuss with SS GI Prophylaxis: H2 chanel VTE Prophylaxis: Theraputic Anticoag with Warfarin Resuscitation Status: CPR: Attempt Resuscitation Hood Lanza MD Jul 31, 2016 09:11
[2016-07-31] MEDS ORDERED: Furosemide 10 mg/mL 2 mL Inj IVPUSH ONE (09:20)
--- NOTE | 2016-07-31 11:52 | NUR ---
Telemetry Per Tele Sinus 73. Blood sugar 203. Nutritional and correctional insulin give as ordered. patient sitting in bed side chair and eating lunch. Denies pain or discomfort.
--- NOTE | 2016-07-31 17:05 | NUR ---
Blood sugar Blood sugar before dinner 303. Insulin given as ordered ( nutritional and correctional). David tony hospitalist and awaiting response back. patient is alert and orientedX3. Able to make needs known. Stable vital signs. denies pain or discomfort. Uses FWW to ambulate to bathroom. Mild Shortness of breath with activity. Stable mood. Uses call light appropriately. Continue to monitor blood sugars as ordered, pain, vital signs, and safety. Continuos droplet and contact precautions r/t positive MRSA nares and positive metapneumonic.
--- NOTE | 2016-07-31 17:47 | NUR ---
New orders Called hospitalist and new orders for increase nutritional insulin. See MAR.
[2016-08-01] VITALS (7 sets, daily range): BP systolic 130–177; BP diastolic 65–90; PULSE 59–76; RESP 20–22; O2SAT 95–97
[2016-08-01] MEDS: Albuterol-Ipratropium 3 mL Inhalation Solution NEB SCH ×2 (02:57→09:40)
[2016-08-01] MEDS: HYDROcodone-APAP 5-325 mg Tablet PO PRN (06:12)
[2016-08-01 06:38] LABS: INR 2.25 ratio
[2016-08-01] MEDS: guaiFENesin 600 mg ER12 Tablet PO SCH (07:39)
[2016-08-01] MEDS: Calcium Carbonate (Oyster Shell) 500 mg Tablet PO SCH (07:39)
[2016-08-01] MEDS: Isosorbide Mononitrate 60 mg ER24 Tablet PO SCH (07:41)
[2016-08-01] MEDS: MeTOProlol XL 50 mg ER24 Tablet PO SCH (07:43)
[2016-08-01] MEDS: Insulin LISPRO 300 Unit/3 mL Inj SUBQ SCH ×2 (07:44→11:42)
[2016-08-01] MEDS: Insulin GLARgine 100 Unit/mL Syringe SUBQ SCH (07:44)
[2016-08-01] MEDS: Mupirocin 2% 22 Gm Ointment TOPICAL SCH (07:45)
[2016-08-01] MEDS ORDERED: predniSONE 20 mg Tablet PO SCH (08:30)
[2016-08-01] MEDS ORDERED: PRE20 PO (08:42)
[2016-08-01] MEDS ORDERED: MUPI22OI2 TOPICAL (08:42)
[2016-08-01] MEDS: Budesonide 0.5 mg/2 mL Inhalation Solution NEB SCH (09:40)
--- NOTE | 2016-08-01 10:51 | NUR ---
Discharge Patient given discharge orders. Patient IV removed fully intact and asymptomatic. Patient given medication list with next dose due written. Patient given informational packets. Patient Tele removed and alarm security or surveillance monitor informed. Patient reminded to pack and leave with all belongings. Patient calling for transportation home.
--- NOTE | 2016-08-01 13:50 | NUR ---
Social Work: Discharge Data: Pt is on day 6 of hospitalization. EMR reviewed. D/C orders are in. AIRCRAFT ENGINE MECHANIC called and notified Doretha RED. AIRCRAFT ENGINE MECHANIC met with pt and spouse regarding d/c plans. Agreeable to plan. No further d/c planning needs. AIRCRAFT ENGINE MECHANIC will continue to follow if needs arise. Assessment: Pt who is independent at baseline. Plan: Pt will d/c home via POV with Doretha RED, RN/PT. No further d/c planning needs. AIRCRAFT ENGINE MECHANIC will continue to follow if needs arise. ROULA Mcdonald
== END 2016-08-01 13:00 | disposition home health service (06) | DRG 190 ==
LOC: SED 22:51 → MPC 07-26 02:47
PROVIDERS: ADMIT Internal Medicine; ATTEND Internal Medicine
DX: J44.0 Chronic obstructive pulmonary disease with (acute) lower respiratory infection (principal); J12.3 Human metapneumovirus pneumonia; N17.9 Acute kidney failure, unspecified; J44.1 Chronic obstructive pulmonary disease with (acute) exacerbation; Z79.82 Long term (current) use of aspirin; Z79.4 Long term (current) use of insulin; Z79.52 Long term (current) use of systemic steroids; Z79.01 Long term (current) use of anticoagulants; I48.2 Chronic atrial fibrillation; G47.33 Obstructive sleep apnea (adult) (pediatric); I83.10 Varicose veins of unspecified lower extremity with inflammation; E03.9 Hypothyroidism, unspecified; E78.5 Hyperlipidemia, unspecified; J45.909 Unspecified asthma, uncomplicated; I25.10 Atherosclerotic heart disease of native coronary artery without angina pectoris; M54.9 Dorsalgia, unspecified; E11.65 Type 2 diabetes mellitus with hyperglycemia; T38.0X5A Adverse effect of glucocorticoids and synthetic analogues, initial encounter; N18.9 Chronic kidney disease, unspecified; I12.9 Hypertensive chronic kidney disease with stage 1 through stage 4 chronic kidney disease, or unspecified chronic kidney disease; I34.2 Nonrheumatic mitral (valve) stenosis; Z22.322 Carrier or suspected carrier of Methicillin resistant Staphylococcus aureus

== ENCOUNTER 2016-09-02 15:03 | Emergency (ER) | payer MEDICARE, MEDICAID ==
[~2016-09-02] VITALS: Ht 160 cm; Wt 120.5 kg
[~2016-09-02 15:03] MED LIST changes: -ASPI-628 PO; +ASPI81TA3 PO; -CALC-766 PO; +CALC500T9 PO; +MULT-666 PO; +MUPI22OI2 TOPICAL; +OMEG1CAP56 PO; -OMEP-113 PO; +OMEP20CA11 PO; +PRE20 PO; +PRED50TA PO; +WARF5TAB PO; +qvar
[2016-09-02 15:10] VITALS: BP 182/74; PULSE 73; RESP 18; O2SAT 94
--- NOTE | 2016-09-02 16:05 | DRSVH ---
PROCEDURE: CT BRAIN WITHOUT CONTRAST ([id number]) INDICATIONS: trauma TECHNIQUE: Noncontrast 4.5 mm thick angled axial sections acquired from the foramen magnum to the vertex, with c oronal reformats. COMPARISON: [facility], CT, BRAIN W/O CONTRAST, 10/10/2013, 10:31. FINDINGS: Image quality: Diagnostic. Brain: There is no acute intra-axial or extra-axial hemorrhage. No extra-axial fluid collection is i dentified. There is no midline shift or mass effect. The orbits are grossly unremarkable. No large areas of diffusely decreased attenuation are evident within the brain to suggest diffuse cer ebral edema. There may be areas of periventricular low attenuation within the brain. Intracranial a therosclerosis of the left internal carotid artery and the vertebral arteries are noted. The ventricles and cortical sulci are mildly prominent. Bones: Calvarium and visualized facial bones are grossly intact. The imaged paranasal sinuses and m astoid air cells are clear. IMPRESSION: 1. No acute intracranial hemorrhage. 2. Probable chronic small vessel ischemic changes, similar to the prior study. Dictated by: Jm Vigil M.D. on 09/02/2016 at 15:01 Approved by: Jm Vigil M.D. on 09/02/2016 at 15:04
--- NOTE | 2016-09-02 16:16 | ED.REPORT ---
HPI-Trauma Minor / Fall Date of Service September 02, 2016 ED Provider: Samuel Heller MD The patient is a 76 year old female with history of coronary artery disease, hypertension, atrial fibrillation on Coumadin, diabetes mellitus type II, and asthma, who was sent to the emergency department by her primary physician. 2 days ago the patient hit her head on a door when she was trying to get up at home. Since then she has noticed right-sided blurry vision, mild headache and nausea. She denies dysphagia, difficulty swallowing, weakness, numbness, tingling or vomiting. She had a low INR level yesterday. Nursing Notes Stated Complaint: HEAD INJURY Chief Complaint: Head, Face, Neck Trauma Nursing Notes Reviewed: Yes Allergies: Coded Allergies: codeine (Verified Allergy, Unknown, 09/02/16) ibuprofen (Verified Allergy, Unknown, 09/02/16) Scheduled ([qvar ]) 40 MCG BID Amiodarone (Amiodarone) 200 Mg Tablet 100 MG PO AM Amlodipine (Amlodipine) 5 Mg Tablet 10 MG PO DAILY Aspirin Chew (Aspirin Chew) 81 Mg Chew 81 MG PO DAILY Atorvastatin Calcium (Atorvastatin Calcium) 40 Mg Tablet 80 MG PO DAILY Calcium Carbonate (Tums) 500 Mg Tab.chew 1,000 MG PO DAILY Ferrous Sulfate (Ferrous Sulfate) 325 Mg Tablet 325 MG PO DAILY Fluticasone Propionate (Flovent HFA 110 mcg) 12 Gm Aer.w.adap 1 PUFF IH BID Furosemide (Furosemide) 40 Mg Tablet 80 MG PO DAILY Insulin Aspart (NovoLOG U-100 Pen) 100 Unit/Ml Insuln.pen 16 SQ AC Insulin Glargine (Lantus U100 Solostar Insulin Pen) 100 Unit/1 Ml Insuln.pen 30 UNIT SUBQ MORNING Insulin Glargine (Lantus U100 Solostar Insulin Pen) 100 Unit/1 Ml Insuln.pen 25 UNIT SUBQ QPM Isosorbide MN ER (Isosorbide MN ER) 120 Mg Tab.er.24h 120 MG PO AM Levothyroxine (Levothyroxine) 88 Mcg Tablet 75 MCG PO DAILY Losartan Potassium (Losartan Potassium) 50 Mg Tablet 50 MG PO DAILY Magnesium Oxide (Magnesium Oxide) 250 Mg Tablet 250 MG PO DAILY Metoprolol Succinate ER (Metoprolol Succinate ER) 50 Mg Tab.er.24h 200 MG PO DAILY Multivitamin (Once Daily) 1 Each Tablet 1 EACH PO DAILY Mupirocin (Mupirocin Ointment) 22 Gm Oint...g. 1 APPLIC TOPICAL BID [place]-3 Fatty Acids/Fish Oil ([place] 3 1,000 mg Softgel) 1 Each Capsule 1 EACH PO DAILY Omeprazole (Omeprazole) 20 Mg Capsule.dr 20 MG PO DAILY Prednisone (PredniSONE) 50 Mg Tablet 50 MG PO DAILY Prednisone (PredniSONE) 20 Mg Tablet 40 MG PO DAILY Warfarin Sodium (Warfarin Sodium) 5 Mg Tablet 2.5 MG PO DIRECTED Mon, Thu, Thu Warfarin Sodium (Coumadin) 5 Mg Tablet 5 MG PO DAILY Take sun, thu, , thu Scheduled PRN Albuterol HFA (Proair HFA) 8.5 Gm Hfa.aer.ad 2 PUFFS IH Q4 PRN PRN For Shortness of Breath Hydrocodone-Acetaminophen 5-325 mg (Hydrocodone-Acetaminophen 5-325 mg) 1 Each Tablet 1 EACH PO TID PRN PRN For Pain Nitroglycerin SL (Nitrostat) 0.4 Mg Tab.subl 0.4 MG SL Q5MIN PRN PRN For Chest Pain General Time Seen by MD: 16:12 Chief Complaint Head injury Hx Obtained From: Patient, Primary care provider Arrived By: Walk-in Onset Occurred: 2 days ago Symptom Duration: Since onset Location: Head Quality: Painful Severity: Current: Mild Severity: Maximum: Mild Recent Healthcare: No recent hospitalization, Recent doctor visit Similar Sx Previous: No Past Medical History Past Medical History Notes: Echocardiogram January 2015 with normal left ventricular size, increased left ventricular wall thickness, EF 70-75% with a hyperdynamic left ventricle, moderate mitral stenosis Past Medical History Sleep apnea hypertension thyroid issues atrial fibrillation Diabetes, type II Hyperlipidemia Asthma Obstructive sleep apnea Reports: Coronary artery disease Past Surgical History Eye surgery Cardiac Cath 07/2010 - LAD free of critical disease, but diagonal branches about 95% ostial disease, circumflex artery had about a 50-60% ostial and proximal disease, and inferior branch of obtuse marginal had about 70-80% proximal disease, and the right coronary about 40-50% mid disease, attempted that time by Dr. Hagan on percutaneous intervention on the high diagonal in the inferior branch of obtuse marginal, but was technically difficult PCI itself was unsuccessful-since that time the patient's been managed medically Reports: , Hysterectomy, Tonsillectomy Smoking History Never Smoker Social History Alcohol Use: Denies alcohol use Other Social History: Ambulatory Status Independent Review of Systems Eyes: Reports: Blurred right Neurologic: Reports: Headache, Denies: Change LOC, Focal weakness, Numbness, Slurred speech, Syncope, Unable to speak, Weakness Complete sys rev & neg: except as marked. GI: Reports: Nausea, Denies: Dysphagia, Vomiting Physical Exam Initial Vital Signs Vital Signs (First) Date Time Temp Pulse Resp B/P Pulse Ox O2 Delivery O2 Flow Rate FiO2 09/02/16 15:10 36.8 73 18 182/74 94 Room Air Initial VS: Reviewed ENT: Mucous membranes moist, Conjunctiva normal, No scleral icterus Respiratory: Breath sounds normal, Clear to auscultation, No respiratory distress Cardiovascular: Regular rate & rhythm, Heart sounds normal, Intact distal pulses Abdomen / GI: Soft, Non-tender, No guarding, No rebound, No distention Lymphatic: No lymphadenopathy Extremities: Vascular intact, Neuro intact, No swelling, No tenderness Skin: Warm, Dry, No cyanosis Psychiatric: Mood/affect normal, Behavior normal, Normal thought content General/Constitutional: Awake, Alert Neck: Atraumatic, Supple, Full range of motion, No swelling, Non-tender, No midline vertebral tend Head / Eyes: Normocephalic, PERRL, EOMI There is a 1/2 cm hematoma on the top of her head. Visual acuity: 20/30 left eye, 20/40 right eye. Neurologic: Oriented X3, Speech NL, No motor deficits, No sensory deficits, CN II - XII intact, Cerebellar NL Interpretation & Diagnostics CT Head Interpretation IMPRESSION: 1. No acute intracranial hemorrhage. 2. Probable chronic small vessel ischemic changes, similar to the prior study. Dictated by: Jm Vigil M.D. on 09/02/2016 at 15:01 Study: Head CT no contrast Interpretation / Wet Read by: Interpret - Radiologist Re-Eval/Medical Decision Med Decision/Clinical Course 76-year-old female on Coumadin for atrial fibrillation sent in by primary doctor after she bumped her head on a door yesterday. She had no loss of consciousness. She has a mild headache. She does report some blurry vision but no other neurological deficits or changes. Her neurological exam is completely normal. Her CT head shows no acute pathology. Her INR from yesterday was 1.9. Given normal INR from yesterday and normal CT head patient was discharged home with return precautions. Advised her to be observed by her family tonight. Precautions given. Source of Hx: Old records Re-Evaluation/Progress : Time of Eval: 16:22 Re-Evaluation/Progress Note: Discussed results, diagnosis, and plan for discharge. All questions were addressed. Counseled Regarding: Diagnosis, Need for follow-up, When/why to return to ED Discharge & Departure Impression: Primary Impression: Closed head injury Encounter type: initial encounter Qualified Code: S09.90XA - Unspecified injury of head, initial encounter Disposition: Home Discharge Condition All VS Reviewed: Yes Condition: Stable Patient Instructions: Concussion (ED) Additional Instructions: Thank you for entrusting us with your care today. Your head CT today is reassuring. There is no evidence of an intracranial bleed. We do not need to recheck your INR level since it was below normal yesterday. Followup with your regular doctor in 1-2 days for re-evaluation. Return to the emergency department for increased pain, visual loss, speech changes, numbness, weakness, dizziness, lightheadedness, or any other new or worsening symptoms. Referrals: NOPCP (PCP) Scribe Attestation Portions of this note were transcribed by Rosana Almonte. I, Dr. Heller personally performed the history, physical exam and medical decision-making; I reviewed and confirmed the accuracy of the information in the transcribed note. Signed by: Pedro Patel, 09/02/2016 at 1645. Samuel Heller MD September 02, 2016 16:16 Rosana Almonte September 02, 2016 16:24
[2016-09-02 17:38] VITALS: BP 185/66; PULSE 67; RESP 18; O2SAT 96
== END 2016-09-02 16:25 | disposition home or self-care (01) ==
LOC: SED 15:03
DX: S09.8XXA Other specified injuries of head, initial encounter (principal); W22.8XXA Striking against or struck by other objects, initial encounter; Y93.89 Activity, other specified; Y92.019 Unspecified place in single-family (private) house as the place of occurrence of the external cause; Y99.8 Other external cause status; I11.9 Hypertensive heart disease without heart failure; E11.59 Type 2 diabetes mellitus with other circulatory complications; I25.10 Atherosclerotic heart disease of native coronary artery without angina pectoris; I48.91 Unspecified atrial fibrillation; E78.5 Hyperlipidemia, unspecified; J45.909 Unspecified asthma, uncomplicated; Z79.4 Long term (current) use of insulin; Z79.82 Long term (current) use of aspirin; Z79.01 Long term (current) use of anticoagulants; Z79.84 Long term (current) use of oral hypoglycemic drugs; Z88.5 Allergy status to narcotic agent; Z88.8 Allergy status to other drugs, medicaments and biological substances
CPT/HCPCS: 70450; 99284; G0463

== ENCOUNTER 2016-12-07 08:28 | Emergency (ER) | payer MEDICARE, MEDICAID ==
[~2016-12-07] VITALS: Ht 160 cm; Wt 122.7 kg
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
[2016-12-07 08:40] VITALS: BP 141/54; PULSE 80; RESP 18; O2SAT 96
[2016-12-07 09:08] LABS: BASOPHILS % (AUTO) 0.4 % (0-3); EOSINOPHILS % (AUTO) 2.6 % (0-5); MONOCYTES % (AUTO) 8.2 % (4-12); Mean Corpuscular Hemoglobin 27.5 pg (27.0-35.0); Mean Corpuscular Volume 87.3 fL (81-100); NEUTROPHILS % (AUTO) 79.1 % (40-74); Platelet Count 221 bil/L (150-400)
[2016-12-07 09:11] LABS: INR 4.4 ratio
[2016-12-07 09:19] LABS: TROPONIN T 0.01 ug/L (0.0-0.011)
--- NOTE | 2016-12-07 09:38 | DRSVH ---
PROCEDURE: X-RAY CHEST ONE VIEW, PORTABLE ([id number]) INDICATIONS: 76 year-old female with dyspnea. TECHNIQUE: One view of the chest was acquired. COMPARISON: [facility], CR, XR CHEST 1VW (PORTABLE), 07/29/2016, 11:42. [facility], CR, XR CHEST 2VW, 07/25/2016, 23:28. [facility], CR, XR CHEST 2VW, 07/21/2016, 16 :06. FINDINGS: Surgical changes and devices: None. Lungs and pleura: No pleural effusions or pneumothorax. Lungs are clear. Mediastinum: Mediastinal contours appear normal. Heart size is normal. There is aortic atheroscler osis. Bones and chest wall: No suspicious bony lesions. Overlying soft tissues appear unremarkable. IMPRESSION: No acute cardiopulmonary disease. Dictated by: Venkatesh Wallace M.D. on 12/07/2016 at 9:35 Approved by: Venkatesh Wallace M.D. on 12/07/2016 at 9:36
[2016-12-07 10:10] VITALS: BP 172/68; PULSE 92; RESP 19; O2SAT 91
[2016-12-07 11:22] VITALS: BP 175/54; PULSE 70; RESP 17; O2SAT 92
[2016-12-07 12:30] VITALS: BP 175/54; PULSE 70; RESP 17; O2SAT 92
== END 2016-12-07 12:10 | disposition home or self-care (01) ==
LOC: SED 08:28
DX: J44.9 Chronic obstructive pulmonary disease, unspecified (principal); I50.9 Heart failure, unspecified; E11.319 Type 2 diabetes mellitus with unspecified diabetic retinopathy without macular edema; I11.0 Hypertensive heart disease with heart failure; E78.5 Hyperlipidemia, unspecified; J45.909 Unspecified asthma, uncomplicated; Z86.73 Personal history of transient ischemic attack (TIA), and cerebral infarction without residual deficits; Z88.5 Allergy status to narcotic agent; Z88.6 Allergy status to analgesic agent; Z79.82 Long term (current) use of aspirin; Z79.4 Long term (current) use of insulin; Z79.01 Long term (current) use of anticoagulants